=== PATIENT | female | born 1960 | race Caucasian/White ===

== ENCOUNTER 2019-07-04 07:31 | Outpatient (CLI) | payer BC, OTHER, SELFPAY ==
--- NOTE | ~2019-07-04 | MM_ITS ---
EXAMINATION: MM screening zeke BI w lucas HISTORY: Screening mammogram TECHNIQUE: Craniocaudal and mediolateral oblique 3-D tomosynthesis images were obtained and synthetic 2-D images were generated. CAD analysis was submitted and interpreted. COMPARISON: Comparison to multiple prior studies sequentially, with oldest reviewed study dated 06/2013. BREAST PARENCHYMAL COMPOSITION: There are scattered areas of fibroglandular density. FINDINGS: Right breast asymmetries are stable. There is no evidence of suspicious mass, calcification , or architectural distortion to suggest malignancy in either breast. There has been no suspicious in terval change. IMPRESSION: 1. No mammographic evidence of malignancy. 2. Recommend routine screening mammography in one year. BI-RADS Category 2: Benign finding(s). Reviewed, dictated and finalized at location A. DEPARTMENT MANAGER
== END 2019-07-04 07:32 | disposition home or self-care (01) ==
LOC: ANHIMG 07:38
PROVIDERS: PCP Internal Medicine; Visit Provider Obstetrics & Gynecology
DX: Z12.31 Encounter for screening mammogram for malignant neoplasm of breast (principal)
CPT/HCPCS: 77063; 77067

== ENCOUNTER → 2019-11-27 13:43 | Outpatient (CLI) | payer OTHER, SELFPAY ==
--- NOTE | ~2019-11-27 | US_ITS ---
EXAMINATION: US carotid duplex BI DATE: 11/27/2019 14:15 INDICATION: Right face and arm numbness. TECHNIQUE: Grayscale, color Doppler, and pulsed Doppler images of the cervical carotid arteries were obtained. The degree of vessel stenosis is placed in one of the following categories: normal, <50%, 5 0-69%, >=70% but less than near-occlusion, near-occlusion, or total occlusion. Note that percent sten osis relative to normal distal artery lumen diameter is indirectly measured from velocity measurement s as described by Constantine, et al. Radiology 2003; 229:340-346. COMPARISON: None. FINDINGS: RIGHT: The right common carotid artery (CCA) peak systolic velocity (PSV) is 96 cm/s. The right internal car otid artery (ICA) PSV is 85 cm/s. The right ICA end-diastolic velocity (EDV) is 29 cm/s. The right IC A/CCA PSV ratio is 1.4. Grayscale and color Doppler images yield an estimate of <50% diameter reducti on from plaque in the ICA. There is antegrade flow in the right vertebral artery. LEFT: The left CCA PSV is 113 cm/s. The left ICA PSV is 76 cm/s. The left ICA EDV is 22 cm/s. The left ICA/ CCA PSV ratio is 0.8. Grayscale and color Doppler images yield an estimate of <50% diameter reduction from plaque in the ICA. There is antegrade flow in the left vertebral artery. IMPRESSION: 1. <50% stenosis in the right internal carotid artery. 2. <50% stenosis in the left internal carotid artery. Reviewed, dictated and finalized at location A.
== END ==
PROVIDERS: PCP Internal Medicine; Visit Provider Physician Assistant
DX: G45.9 Transient cerebral ischemic attack, unspecified (principal); R20.0 Anesthesia of skin; I65.23 Occlusion and stenosis of bilateral carotid arteries
CPT/HCPCS: 93880

== ENCOUNTER → 2019-11-27 13:45 | Outpatient (CLI) | payer OTHER, SELFPAY ==
--- NOTE | ~2019-11-27 | XR_ITS ---
XR foot RT standing 2V, XR foot LT standing 2V 11/27/2019 14:49 Indication: Polyarticular joint pain. Osteoarthritis. Procedure: 2 views each foot Comparison: No prior studies for comparison. Findings: Normal anatomic alignment. Normal mineralization. No fracture or traumatic malalignment. Th ere are bilateral degenerative calcaneal enthesophytes. No erosive changes to suggest for inflammator y arthropathy. There is mild bilateral symmetric osteoarthritis of the first MTP joints. No fracture or traumatic malalignment. Lisfranc joint intact. Impression: 1: Mild osteoarthritis of the MTP joints. Reviewed, dictated and finalized at location A. Impression: 1: Mild osteoarthritis of the MTP joints. Impression: 1: Mild osteoarthritis of the MTP joints.
--- NOTE | ~2019-11-27 | XR_ITS ---
EXAMINATION: XR hand BI arthritis min 3V DATE: 11/27/2019 14:48 INDICATION: Unspecified osteoarthritis, unspecified site. TECHNIQUE: 4 views of right hand and 4 views of left hand on 7 radiographs were obtained. COMPARISON: None. FINDINGS: RIGHT HAND: Bone alignment is normal. No fracture. There is mild osteoarthritis of first carpometacar pal joint, second metacarpophalangeal joint, first interphalangeal joint, and second and fourth dista l interphalangeal joints. LEFT HAND: Bone alignment is normal. No fracture. There is mild osteoarthritis of first carpometacarp al joint, first and second metacarpophalangeal joints, first interphalangeal joint, third, fourth, an d fifth proximal interphalangeal joints, and second and third distal interphalangeal joints. IMPRESSION: 1. Mild polyarticular osteoarthritis. Reviewed, dictated and finalized at location A.
== END ==
PROVIDERS: PCP Internal Medicine; Visit Provider Internal Medicine
DX: R76.8 Other specified abnormal immunological findings in serum (principal); M19.072 Primary osteoarthritis, left ankle and foot; M19.071 Primary osteoarthritis, right ankle and foot; M19.042 Primary osteoarthritis, left hand; M19.041 Primary osteoarthritis, right hand
CPT/HCPCS: 73130; 73620

== ENCOUNTER → 2019-12-09 12:16 | Outpatient (CLI) | payer OTHER, SELFPAY ==
--- NOTE | ~2019-12-09 | MR_ITS ---
EXAMINATION: MR brain/brain stem wo con DATE: 12/09/2019 12:50 INDICATION: Transient cerebral ischemic attack, unspecified. Right-sided numbness. TECHNIQUE: Magnetic resonance imaging (MRI) of the brain and brainstem was performed without intraven ous contrast. Sequences included sagittal and axial T1-weighted FSE, axial diffusion-weighted FS EPI, axial T2*-weighted GRE, axial T2-weighted FLAIR Propeller, and axial T2-weighted Propeller. Apparent diffusion coefficient (ADC) maps were created. COMPARISON: Brain MRI 07/30/2010 FINDINGS: There is no intracranial hemorrhage, acute infarction, or abnormal intracranial mass lesion . There are scattered areas of nonspecific increased T2-weighted signal intensity in the cerebral whi te matter, which is within normal limits for the patient's age. The ventricles are normal in size. Th e paranasal sinuses are clear. The orbits are normal. The mastoid air cells are normal. IMPRESSION: 1. Normal aging brain. Reviewed, dictated and finalized at location B. IMPRESSION: 1. Normal aging brain.
== END ==
PROVIDERS: PCP Physician Assistant; Visit Provider Physician Assistant
DX: G45.9 Transient cerebral ischemic attack, unspecified (principal)
CPT/HCPCS: 70551

== ENCOUNTER 2020-04-10 08:18 | Emergency (ER) | payer OTHER, SELFPAY ==
[2020-04-10] VITALS (12 sets, daily range): BP systolic 126–149; BP diastolic 61–87; PULSE 87–109; RESP 13–38; TEMP 37.4; O2SAT 92–96
--- NOTE | ~2020-04-10 | XR_ITS ---
XR chest 1V portable DATE: 04/10/2020 09:43 INDICATION: Cough and fever TECHNIQUE: Portable AP chest on 04/10/2020 0937 hours COMPARISON: 02/22/2017 two-view chest FINDINGS: Heart size is normal. There are patchy infiltrates in the mid and lower lung zones bilaterally the right hilum appears more prominent compared to 02/22/2017, which may be due to right hilar adenopathy, mass, superimposed abhay g mass or consolidation. Continued radiographic follow-up is recommended. IMPRESSION: Patchy infiltrates in the mid and lower lung zones, suggesting bilateral pneumonia. Increased right hilar prominence since 02/22/2017; recommend continued radiographic follow-up Reviewed, dictated and finalized at location A. GER OF CASE MANAGEMENT IMPRESSION: Patchy infiltrates in the mid and lower lung zones, suggesting bila teral pneumonia. Increased right hilar prominence since 02/22/2017; [facility]
--- NOTE | 2020-04-10 09:24 | ED.FEVER ---
HPI - Fever General Chief Complaint: Fever Stated Complaint: exposed to covid, vomiting, cough Time Seen by Provider: 04/10/20 08:49 Source: RN notes reviewed History of Present Illness HPI Narrative: Patient presents emergency department from home for viral symptoms. The patient states for the past week she has been having a cough that has been nonproductive as well as phlegm production low-grade fever nausea and vomiting. Patient states that numerous family emergency been positive for COVID-19 and she was tested on Monday but does not have the results came in today because she has been feeling dehydrated and weak and states that she has been unable to keep down any food. She denies chest pain abdominal pain or any other symptoms at this time Related Data Home Medications Medication Instructions Recorded Confirmed esomeprazole magnesium 40 mg 40 mg PO DAILY 03/16/19 02/10/20 capsule,delayed release cholecalciferol (vitamin D3) 250 10,000 unit PO DAILY 03/19/19 02/10/20 mcg (10,000 unit) capsule esomeprazole magnesium 20 mg 20 mg PO DAILY 02/04/20 02/10/20 tablet,delayed release Allergies Allergy/AdvReac Type Severity Reaction Status Date / Time atenolol Allergy Intermediate Fatigued Verified 04/10/20 08:42 hydroxychloroquine Allergy Intermediate Rash Verified 04/10/20 08:42 oseltamivir Allergy Unknown Hallucinati Verified 04/10/20 08:42 ons morphine AdvReac Unknown NAUSEA/VOMI Verified 04/10/20 08:42 TING Review of Systems Review of Systems: Narrative: Gen.: See HPI Eyes: Denies eye pain or visual change ENT: Reports congestion Respiratory: Reports shortness of breath and cough CV: Denies chest pain or palpitations GI: Denies abdominal pain or diarrhea reports nausea and vomiting Musculoskeletal: Denies back pain or muscle pain Neuro: Denies numbness, tingling, reports weakness Skin: Denies rash Except as documented, all other systems reviewed and negative PMF Past Medical History Medical History (Updated 04/10/20 @ 12:43 by Douglas Cuba DO) ALTHEA positive Chronic GERD Headache Surgical History Surgical History H/O tubal ligation H/O: hysterectomy Hx of tonsillectomy Family History Family History Sibling Patient's sister is in good health Patient's brother is in good health Mother Patient's mother is , Onset Age: 62 Father Patient's father is , Onset Age: 63 Rheumatic arteritis Social History Social History Smoking packs per day: 0.5 Smoking cigarettes per day: 10.0 Years smoked: 3 Smoking pack-years: 1.50 Smoking status: Former smoker Second hand tobacco smoke exposure: No Smoking end date: 05/01/87 Alcohol intake: former Substance use: never Gender identity (if verbalized by the patient): Female Exam Narrative: Exam Narrative: APPEARANCE: No acute distress, nontoxic, resting in bed EYES: EOMI HEENT: Normocephalic, atraumatic, RESPIRATORY: No respiratory distress Clear to auscultation bilaterally with no rhonchi wheezing or rales. CARDIOVASCULAR: Regular rate and rhythm without murmurs rubs or gallops. ABDOMINAL: Soft, nontender, nondistended, no rebound or guarding MUSCULOSKELETAl: Moves all extremities. No clubbing, cyanosis or edema. NEURO: Awake and alert. Following commands, speech normal, no focal deficits SKIN:: Warm, dry. No rashes lesions or abrasions PSYCHIATRIC: Normal affect/mood, Course Course Emergency Course: Patient with walking pulse ox test in the ED with no episodes of desaturation : Discussed Dr. Pickard presentation work-up agrees with plan for discharge patient start antibiotics Discussed with patient results of workup and diagnosis. Discussed need for follow-up with primary care, proper use of medication,
[2020-04-10 09:54] LABS: Basophils Percent Auto 0.3 % (0.2-1.2); Hematocrit 41.5 % (37.0-47.0); Hemoglobin 14.6 g/dL (12.0-15.0); Immature Granulocyte Absolute 0.02 K/mm3 (0.00-0.031); Immature Granulocyte Percent A 0.3 % (0-0.5); Lymphocytes Absolute Auto 0.72 K/mm3 (0.9-3.2); Lymphocytes Percent Auto 12.1 % (18.3-44.2); Mean Corpuscular HGB Conc 35.2 g/dl (32-36); Mean Corpuscular Hemoglobin 30.7 pg (26-34); Mean Corpuscular Volume 87.4 fl (80-100); Monocytes Absolute Auto 0.3 K/mm3 (0.1-0.6); Monocytes Percent Auto 4.6 % (2.6-8.5); Neutrophils Absolute Auto 4.9 K/mm3 (1.3-6.7); Neutrophils Percent Auto 82.7 % (45.5-73.1); Platelet Count Result 227 k/mm3 (150-375); Red Blood Count 4.75 M/mm3 (4.2-5.4); Red Cell Distribution Width 12.2 % (11.5-14.5); White Blood Count 5.9 K/mm3 (4.5-10.0)
[2020-04-10] MEDS: ONDANSETRON INJ 4 MG/2 ML VIAL IV PUSH (09:54)
[2020-04-10] MEDS: SODIUM CHLORIDE 0.9% IV 1,000 ML 999 ML IV CONT (09:54)
[2020-04-10 10:05] LABS: Alanine Aminotransferase 26 U/L (4-35); Alkaline Phosphatase 104 U/L (38-126); Anion Gap 9 mmol/L (8-16); Aspartate Amino Transferase 49 U/L (14-36); Bilirubin,Total 0.8 mg/dL (0.2-1.3); Blood Urea Nitrogen 21 mg/dL (7-17); Calcium 8.8 mg/dL (8.4-10.2); Carbon Dioxide 25 mmol/L (22-30); Chloride 98 mmol/L (98-107); Estimated CRCL calculation 57 ml/min; Estimated Glomerular Filt Rate 56; Glucose 116 mg/dL (65-105); Potassium 3.9 mmol/L (3.4-5.0); Sodium 132 mmol/L (137-145)
[2020-04-10] MEDS: ALBUTEROL SULFATE (*SP) AEROSOL 1 PUFF 2 PUFF INHALATION (10:11)
[2020-04-10] MEDS: AZITHROMYCIN 250 MG TABLET 500 MG PO (13:16)
[2020-04-10] MEDS: predniSONE 20 MG TABLET 60 MG PO (13:16)
[2020-04-10 18:45] LABS: SARS-CoV-2 RNA PCR Positive
== END 2020-04-10 13:20 | disposition home or self-care (01) ==
PROVIDERS: Emergency Provider Emergency Medicine; PCP Internal Medicine
DX: J18.9 Pneumonia, unspecified organism (principal); R11.2 Nausea with vomiting, unspecified; Z20.828 Contact with and (suspected) exposure to other viral communicable diseases; Z87.891 Personal history of nicotine dependence
CPT/HCPCS: 36415; 71045; 80053; 85025; 87635; 87804; 96361; 96374; 99284; A9270; C9803; J2405; J7030; J7512; U0003

== ENCOUNTER 2020-04-11 08:01 | Inpatient (IN) | payer OTHER, SELFPAY ==
[2020-04-11] VITALS (8 sets, daily range): BP systolic 123–175; BP diastolic 63–83; PULSE 89–117; RESP 18–22; TEMP 36.2–37.3; O2SAT 94–100; BMI 36.3
--- NOTE | ~2020-04-11 | XR_ITS ---
EXAMINATION: XR chest 1V portable DATE: 04/11/2020 08:35 INDICATION: Shortness of breath. COVID. TECHNIQUE: frontal view of the chest was obtained. COMPARISON: Chest radiograph dated 04/10/2020 FINDINGS: Again seen are patchy airspace opacities in the right mid and left mid and lower lung zones which are without significant interval change accounting for differences in positioning. No pleural effusion o r pneumothorax. The cardiomediastinal silhouette is normal. IMPRESSION: 1. No significant interval change in patchy bilateral airspace opacities consistent with pneumonia. Reviewed, dictated and finalized at location A. OUND SUPERVISOR IMPRESSION: 1. No significant interval change in patchy bilateral airspace opacities consis tent with pneumonia.
--- NOTE | ~2020-04-11 | XR_ITS ---
EXAMINATION: XR chest 1V portable DATE: 04/14/2020 05:47 INDICATION: COVID-19 pneumonia. TECHNIQUE: A single frontal view of the chest was obtained. COMPARISON: Chest view 04/11/2020, CT abdomen and pelvis 05/25/2019 FINDINGS: There are scattered airspace opacities throughout the lungs bilaterally. No pleural effusio n or pneumothorax. The heart size is normal. IMPRESSION: 1. Worsened diffuse lung disease, consistent with pneumonia. Reviewed, dictated and finalized at location A. ERN STAMPER
[2020-04-11 08:32] LABS: Basophils Percent Auto 0.1 % (0.2-1.2); Hematocrit 41.7 % (37.0-47.0); Hemoglobin 14.3 g/dL (12.0-15.0); Immature Granulocyte Absolute 0.03 K/mm3 (0.00-0.031); Immature Granulocyte Percent A 0.4 % (0-0.5); Lymphocytes Absolute Auto 1.02 K/mm3 (0.9-3.2); Lymphocytes Percent Auto 12.9 % (18.3-44.2); Mean Corpuscular HGB Conc 34.3 g/dl (32-36); Mean Corpuscular Hemoglobin 30.7 pg (26-34); Mean Corpuscular Volume 89.5 fl (80-100); Mean Platelet Volume 10.4 fl (7.4-10.4); Monocytes Absolute Auto 0.4 K/mm3 (0.1-0.6); Monocytes Percent Auto 4.8 % (2.6-8.5); Neutrophils Absolute Auto 6.5 K/mm3 (1.3-6.7); Neutrophils Percent Auto 81.8 % (45.5-73.1); Platelet Count Result 241 k/mm3 (150-375); Red Blood Count 4.66 M/mm3 (4.2-5.4); Red Cell Distribution Width 12.4 % (11.5-14.5); White Blood Count 7.9 K/mm3 (4.5-10.0)
[2020-04-11 08:47] LABS: Alveolar/Arterial O2 Gradient 53.1 mmHg; Base Excess ABG -2.4 mEq/l (+/-2.0); Fractional Inspired Oxygen 21 %; HCO3 ABG 20.6 mEq/l (22.0-26.0); Oxygen Content ABG 17.9 %vol (16.0-22.0); Oxygen Saturation ABG 92.3 % (95.0-100.0); Oxyhemoglobin 90.8 % THb (90.0-100.0); PCO2 ABG 30.6 mmHg (35.0-45.0); PO2 FiO2 Ratio Arterial Blood 2.86 %; pH ABG 7.445 (7.350-7.450)
[2020-04-11 08:47] LABS: Anion Gap 10 mmol/L (8-16); Blood Urea Nitrogen 20 mg/dL (7-17); Carbon Dioxide 26 mmol/L (22-30); Chloride 101 mmol/L (98-107); Estimated CRCL calculation 64 ml/min; Estimated Glomerular Filt Rate > 60; Glucose 129 mg/dL (65-105); Potassium 3.7 mmol/L (3.4-5.0); Sodium 137 mmol/L (137-145)
[2020-04-11 08:48] LABS: Device ROOM AIR; Site Drawn LEFT BRACHIAL
--- NOTE | 2020-04-11 09:59 | PC.NURSE ---
After some exertion, the patients O2 dropped to 89 and mostly stayed at 90. Heart rate reached 136
--- NOTE | 2020-04-11 10:10 | ED.SOB ---
HPI - SOB/Dyspnea General Chief Complaint: Shortness of Breath/Dyspnea Stated Complaint: Covid +, SOB Time Seen by Provider: 04/11/20 08:06 Source: patient Mode of arrival: ambulatory Limitations: no limitations History of Present Illness HPI Narrative: 59-year-old female Here yesterday for nausea vomiting cough Started Augmentin and prednisone and was prescribed albuterol but it really is not using that Feels worse today with more shortness of breath Meanwhile yesterday's Covid swab came back positive No fever no dizziness Onset (ago): day(s) Related Data Home Medications Medication Instructions Recorded Confirmed esomeprazole magnesium 40 mg 40 mg PO DAILY 03/16/19 04/11/20 capsule,delayed release cholecalciferol (vitamin D3) 250 10,000 unit PO DAILY 03/19/19 04/11/20 mcg (10,000 unit) capsule esomeprazole magnesium 20 mg 20 mg PO DAILY 02/04/20 04/11/20 tablet,delayed release Allergies Allergy/AdvReac Type Severity Reaction Status Date / Time atenolol Allergy Intermediate Fatigued Verified 04/11/20 08:16 hydroxychloroquine Allergy Intermediate Rash Verified 04/11/20 08:16 oseltamivir Allergy Unknown Hallucinati Verified 04/11/20 08:16 ons morphine AdvReac Unknown NAUSEA/VOMI Verified 04/11/20 08:16 TING Review of Systems Review of Systems: All systems reviewed & are unremarkable except as noted in HPI and below Constitutional: Constitutional: Reports chills, Reports fatigue, Denies fever(s), Denies headache(s) and Reports weakness Eyes: Eyes: Reports no additional eye complaints and Denies change in vision ENT: Denies headache(s), Denies epistaxis, Denies nasal congestion and Denies sore throat Cardiovascular: Cardiovascular: Denies chest pain, Denies leg edema, Denies palpitations and Denies dyspnea Respiratory: Respiratory: Reports cough, Reports dyspnea and Denies wheezing Gastrointestinal: Gastrointestinal: Denies abdominal pain, Denies diarrhea, Reports nausea and Reports vomiting Genitourinary: Genitourinary: Denies hematuria, Denies urinary frequency and Denies dysuria Musculoskeletal: Musculoskeletal: Reports myalgias, Denies deformity, Denies arthralgias, Denies joint swelling, Denies muscle weakness and Denies numbness Integumentary/Breasts: Skin/Breast: Denies rash and Denies wounds Neurologic: Denies headache(s), Denies focal weakness, Denies numbness and Denies weakness Psychiatric: Psychiatric: Reports no additional psychiatric complaints Endocrine: Endocrine: Denies fatigue and Denies palpitations Hematologic/Lymphatic: Hematologic/Lymphatic: Denies easy bleeding and Denies easy bruising Allergic/Immunologic: Allergic/Immunologic: Denies wheezing PMFSH Past Medical History Medical History (Updated 04/11/20 @ 10:57 by Arsen Moreira MD) ALTHEA positive Chronic GERD Headache Surgical History Surgical History H/O tubal ligation H/O: hysterectomy Hx of tonsillectomy Family History Family History Sibling Patient's sister is in good health Patient's brother is in good health Mother Patient's mother is , Onset Age: 62 Father Patient's father is , Onset Age: 63 Rheumatic arteritis Social History Social History Smoking packs per day: 0.5 Smoking cigarettes per day: 10.0 Years smoked: 3 Smoking pack-years: 1.50 Smoking status: Former smoker Second hand tobacco smoke exposure: No Smoking end date: 05/01/87 Alcohol intake: former Substance use: never Gender identity (if verbalized by the patient): Female Exam Const: General: alert Nutritional Appearance: well nourished Orientation/consciousness: patient oriented x3 Limitations: no limitations HENMT: Head: normocephalic and atraumatic Ears: external ears normal
[2020-04-11] MEDS: DOXYCYCLINE HYCLATE 100 MG TABLET 200 MG PO (10:26)
[2020-04-11] MEDS: ENOXAPARIN 100 MG/ML SYRINGE SUB-Q (10:27)
[2020-04-11] MEDS: ALBUTEROL SULFATE (*SP) AEROSOL 1 PUFF 4 PUFF INHALATION (10:29)
--- NOTE | 2020-04-11 12:44 | PC.NURSE ---
This patient, Dulce Zabala, was admitted to 3 [facility] Surg Room 327-01. Patient/family oriented to hospital policies and general routines including ID bracelet, bed and alarms, visiting hours, pain management, procedures, bathroom and other care routines, personal items, smoking policy, room service/diet, and visiting hours. Information on how to activate the Rapid Response Team has been discussed. Patient/Family are encouraged to report perceived risks to care and to ask questions if they do not understand what they are told or what they should do.
--- NOTE | 2020-04-11 12:49 | ADMGEN ---
This patient, Dulce Zabala, was admitted to 3 [facility] Surg Room 327-01. Patient/family oriented to hospital policies and general routines including ID bracelet, bed and alarms, visiting hours, pain management, procedures, bathroom and other care routines, personal items, smoking policy, room service/diet, and visiting hours. Information on how to activate the Rapid Response Team has been discussed. Patient/Family are encouraged to report perceived risks to care and to ask questions if they do not understand what they are told or what they should do.
--- NOTE | 2020-04-11 13:00 | PM.IMHP ---
H&P: HPI History of Present Illness Date/Time: 04/11/20 13:00 Chief complaint: Shortness of breath. Narrative: Dulce Zabala is 59-year-old female with ALTHEA positive inflammatory arthritis for which she is on hydroxychloroquine who presented to the emergency department earlier today from home for evaluation of shortness of breath. She was actually seen emergency department yesterday with respiratory symptoms including cough, low-grade fever, nausea, vomiting, and diarrhea and at that time she was concerned for COVID-19 as she was exposed to such about a week ago. She was found to have pneumonia on chest x-ray and was discharged home on Augmentin and prednisone and she was also given a prescription for a rescue inhaler. Unfortunately she has had increasing shortness of breath which led her to return back to the emergency department. Reportedly she became hypoxic with an SpO2 in the high 80s with ambulation, prompting her admission. At the time my evaluation she is resting comfortably but continues to have a nagging cough and feelings of shortness of breath, without activity. No headache, chest pain, pleuritic pain, current nausea or vomiting, or lower extremity edema. Review of Systems Review of Systems: Narrative: Twelve systems were reviewed with pertinent positives and negatives as per HPI. No headache or neck ache. Her appetite is somewhat improved. No syncope or near syncope. Diarrhea has resolved. No dysuria. She has not taken her hydroxychloroquine for several days and is not having any issues with joint pain. Except as documented, all other systems were reviewed and are negative. [facility] Past Medical History Medical History (Updated 04/12/20 @ 00:51 by Nga Saenz PA-C) ALTHEA positive Chronic GERD Fatty liver Hyperlipidemia Hypertension Inflammatory arthritis Rectal polyp Shingles (~01/2020) Vitamin D deficiency Surgical History Surgical History (Updated 04/12/20 @ 00:48 by Nga Saenz PA-C) History of tonsillectomy History of total abdominal hysterectomy and bilateral salpingo-oophorectomy History of tubal ligation Family History Family History Sibling Patient's sister is in good health Patient's brother is in good health Mother Patient's mother is , Onset Age: 62 Father Patient's father is , Onset Age: 63 Rheumatic arteritis Social History Social History (Updated 04/12/20 @ 00:49 by Nga Saenz PA-C) Social History: Resides in [place] with her . Remote smoking history, quit in 1987. No alcohol or illicit substance abuse. She designates her as her surrogate decision maker and wishes to be a full code. Smoking packs per day: 0.5 Smoking cigarettes per day: 10.0 Years smoked: 3 Smoking pack-years: 1.50 Smoking status: Never smoker Second hand tobacco smoke exposure: No Smoking end date: 05/01/87 Alcohol intake: never Substance use: never Gender identity (if verbalized by the patient): Female Spiritual care concerns: No Meds Home Medications and Allergies Home Medications Medication Instructions Recorded Confirmed Type cholecalciferol (vitamin D3) 250 10,000 unit PO DAILY 03/19/19 04/11/20 History mcg (10,000 unit) capsule hydroxychloroquine 200 mg tablet 200 mg PO BID #180 tablet 01/14/20 04/11/20 Rx esomeprazole magnesium 20 mg 20 mg PO DAILY 02/04/20 04/11/20 History tablet,delayed release nebivolol 10 mg tablet 10 mg PO DAILY #90 tablet 03/24/20 04/11/20 Rx albuterol sulfate 2 puff INHALATION QID PRN #6.7 gm 04/10/20 04/11/20 Rx amoxicillin-pot clavulanate 1 tablet PO Q12H #20 tablet 04/10/20 04/11/20 Rx [Augmentin] prednisone 20 mg PO BID #8 tablet 04/10/20 04/11/20 Rx Allergies Allergy/AdvReac Type Severity Reaction Status Date / Time atenolol Allergy Intermediate Fatigued Verified 04/11/20 12:59 oseltamivir Al
[2020-04-11] MEDS: ENOXAPARIN 100 MG/ML SYRINGE 93 MG SUB-Q (20:07)
[2020-04-12] VITALS (13 sets, daily range): BP systolic 107–170; BP diastolic 55–74; PULSE 75–118; RESP 18–22; TEMP 36.7–39.4; O2SAT 91–94
[2020-04-12] MEDS: ACETAMINOPHEN 325 MG TABLET 650 MG PO ×2 (04:18→13:54)
[2020-04-12 07:16] LABS: Basophils Percent Auto 0.1 % (0.2-1.2); Hematocrit 34.5 % (37.0-47.0); Hemoglobin 11.9 g/dL (12.0-15.0); Immature Granulocyte Absolute 0.04 K/mm3 (0.00-0.031); Immature Granulocyte Percent A 0.5 % (0-0.5); Lymphocytes Absolute Auto 0.74 K/mm3 (0.9-3.2); Lymphocytes Percent Auto 9.2 % (18.3-44.2); Mean Corpuscular HGB Conc 34.5 g/dl (32-36); Mean Corpuscular Hemoglobin 29.7 pg (26-34); Mean Platelet Volume 10.7 fl (7.4-10.4); Monocytes Absolute Auto 0.3 K/mm3 (0.1-0.6); Monocytes Percent Auto 3.2 % (2.6-8.5); Platelet Count Result 195 k/mm3 (150-375); Red Blood Count 4.01 M/mm3 (4.2-5.4); Red Cell Distribution Width 12.1 % (11.5-14.5)
[2020-04-12 07:42] LABS: Potassium 3.5 mmol/L (3.4-5.0)
--- NOTE | 2020-04-12 07:44 | PM.IMPN ---
Progress Note: A&P Assessment and Plan (1) Pneumonia due to 2019-nCoV: Code(s): U07.1 - COVID-19; J12.89 - Other viral pneumonia Status: Acute Assessment and Plan: Dexamethasone begun 04/11 Remdesivir begun 04/12 Monitor clinical progress and inflammatory markers (2) Hypoxia: Code(s): R09.02 - Hypoxemia Status: Acute Assessment and Plan: Due to COVID-19 pneumonia Currently requiring 2L (3) Inflammatory arthritis: Code(s): M19.90 - Unspecified osteoarthritis, unspecified site Status: Acute Assessment and Plan: Monitor for s/sx while on steroids (4) Hypertension: Code(s): I10 - Essential (primary) hypertension Status: Acute Assessment and Plan: Continue nebivolol (5) Chronic GERD: Code(s): K21.9 - Gastro-esophageal reflux disease without esophagitis Status: Acute Assessment and Plan: Continue pantoprazole Subjective Date/time seen: 04/12/20 07:44 Interval history: 59 y/o f admitted 04/11 with cough, dyspnea, fever. Oxygen desaturation to the mid-80s with ambulation. 04/12 still has headache, cough, Shortness of breath with exertion,burning and chest with breathing, body aches, loose stools. Can still taste and smell. Review of Systems Review of Systems: All systems reviewed & are unremarkable except as noted in HPI and below Exam Narrative: Exam Narrative: General: Lying in hospital bed in no acute distress. HEENT: PERRLA, EOMI. Sclerae anicteric. Oral mucosa moist. Oropharynx poorly visualized. Neck: Supple. No JVD. Respiratory: normal effort. Intermittent cough.Scattered crackles at the bases. Cardiovascular: Regular rate and rhythm with S1-S2 Normal. No murmur. Gastrointestinal: Abdomen is soft, nontender, and nondistended with positive bowel sounds. Skin: Warm and dry. Extremities: No cyanosis, clubbing, or edema. Neurological: Cranial nerves 2-12 are grossly intact. Psychiatric: Alert and oriented to person place and time and situation. Pleasant and cooperative. Objective Data Vital Signs Vital Signs: Vital Signs - 24 hr 04/11/20 08:14 04/11/20 10:15 04/11/20 10:17 Temperature 97.1 F L Pulse Rate 89 92 Respiratory Rate 22 H 20 Blood Pressure 144/76 H 175/74 H Pulse Oximetry 94 98 98 04/11/20 11:01 04/11/20 12:30 04/11/20 12:31 Temperature 99.1 F Pulse Rate 114 H 117 H 108 H Respiratory Rate 20 20 20 Blood Pressure 161/83 H 136/68 156/71 H Pulse Oximetry 98 95 100 04/11/20 16:00 04/11/20 20:00 04/12/20 00:00 Temperature 98.8 F 98.9 F 99.2 F Pulse Rate 106 H 91 90 Respiratory Rate 18 22 H 20 Blood Pressure 138/63 123/63 130/59 L Pulse Oximetry 94 94 94 04/12/20 04:00 04/12/20 04:18 04/12/20 05:18 Temperature 103.0 F H 103.0 F H 99.8 F H Pulse Rate 118 H Respiratory Rate 22 H Blood Pressure 170/74 H Pulse Oximetry 93 Intake/Output Intake/Output: Intake & Output 04/09/20 04/10/20 04/11/20 04/12/20 23:59 23:59 23:59 23:59 Intake Total 470 900 Output Total 600 Balance 470 300 Meds/Results Medications: Active Medications Generic Name Dose Route Start Last Admin Trade Name Freq PRN Reason Stop Dose Admin Acetaminophen 650 mg 04/11/20 10:58 04/12/20 04:18 Acetaminophen 325 Mg Tablet PO 650 mg Q4H PRN Administration Mild Pain (1-3) or Fever Albuterol 2 puff 04/11/20 23:40 Albuterol Sulfate (*Sp) Aerosol 1 Puff INHALATION QID PRN shortness of breath or wheezing Dexamethasone 6 mg 04/12/20 08:00 Dexamethasone 2 Mg Tablet PO 04/21/20 08:01 DAILY@0800 EVANGELISTA Enoxaparin Sodium 40 mg 04/12/20 09:00 Enoxaparin 40 Mg/0.4 Ml Syringe SUB-Q Q12HR EVANGELISTA Nebivolol 10 mg 04/12/20 09:00 Nebivolol Hcl 5 Mg Tablet PO DAILY EVANGELISTA Ondansetron HCl 4 mg 04/11/20 10:58 Ondansetron Inj 4 Mg/2 Ml Vial IV PUSH Q4H PRN Nausea Pantoprazole Sodium
[2020-04-12 07:57] LABS: Alanine Aminotransferase 38 U/L (4-35); Albumin Level 3.3 g/dL (3.5-5.1); Alkaline Phosphatase 78 U/L (38-126); Anion Gap 9 mmol/L (8-16); Aspartate Amino Transferase 61 U/L (14-36); Bilirubin,Total 0.8 mg/dL (0.2-1.3); Blood Urea Nitrogen 24 mg/dL (7-17); Calcium 8.5 mg/dL (8.4-10.2); Carbon Dioxide 23 mmol/L (22-30); Chloride 101 mmol/L (98-107); Estimated CRCL calculation 59 ml/min; Estimated Glomerular Filt Rate 56; Glucose 117 mg/dL (65-105); Lactate Dehydrogenase 737 U/L (313-618); Sodium 133 mmol/L (137-145)
[2020-04-12 09:43] LABS: Alanine Aminotransferase 38 U/L (4-35)
[2020-04-12] MEDS: DEXAMETHASONE 2 MG TABLET 6 MG PO (10:19)
[2020-04-12] MEDS: REMDESIVIR 200 MG/NS 250 ML 200 MG/250 ML BAG 250 MG IVPB (10:19)
[2020-04-12] MEDS: CHOLECALCIFEROL 1,000 UNITS TABLET 10000 UNITS PO (10:20)
[2020-04-12] MEDS: PANTOPRAZOLE SOD SESQUIHYDRATE 20 MG TAB PO (10:20)
[2020-04-12] MEDS: ENOXAPARIN 40 MG/0.4 ML SYRINGE SUB-Q ×2 (10:21→21:46)
[2020-04-12] MEDS: NEBIVOLOL HCL 5 MG TABLET 10 MG PO (10:22)
[2020-04-13] VITALS (9 sets, daily range): BP systolic 109–129; BP diastolic 56–61; PULSE 73–83; RESP 16–20; TEMP 36.4–37.2; O2SAT 86–94
[2020-04-13 06:38] LABS: Hematocrit 35.7 % (37.0-47.0); Hemoglobin 12.2 g/dL (12.0-15.0); Mean Corpuscular HGB Conc 34.2 g/dl (32-36); Mean Corpuscular Hemoglobin 30.2 pg (26-34); Mean Corpuscular Volume 88.4 fl (80-100); Mean Platelet Volume 10.8 fl (7.4-10.4); Platelet Count Result 198 k/mm3 (150-375); Red Blood Count 4.04 M/mm3 (4.2-5.4); Red Cell Distribution Width 12.5 % (11.5-14.5); White Blood Count 6.8 K/mm3 (4.5-10.0)
[2020-04-13 06:52] LABS: D Dimer 0.59 ug/mL (<0.48)
[2020-04-13 06:54] LABS: Alanine Aminotransferase 70 U/L (4-35); Albumin Level 3.3 g/dL (3.5-5.1); Alkaline Phosphatase 90 U/L (38-126); Anion Gap 3 mmol/L (8-16); Aspartate Amino Transferase 87 U/L (14-36); Bilirubin,Total 0.7 mg/dL (0.2-1.3); Blood Urea Nitrogen 24 mg/dL (7-17); Calcium 8.6 mg/dL (8.4-10.2); Carbon Dioxide 25 mmol/L (22-30); Chloride 102 mmol/L (98-107); Estimated CRCL calculation 65 ml/min; Estimated Glomerular Filt Rate > 60; Glucose 111 mg/dL (65-105); Lactate Dehydrogenase 788 U/L (313-618); Potassium 3.9 mmol/L (3.4-5.0); Sodium 130 mmol/L (137-145)
[2020-04-13 07:04] LABS: CRP 17.7 mg/dL (<1.0)
[2020-04-13] MEDS: DEXAMETHASONE 2 MG TABLET 6 MG PO (08:56)
[2020-04-13] MEDS: ENOXAPARIN 40 MG/0.4 ML SYRINGE SUB-Q ×2 (08:57→20:28)
[2020-04-13] MEDS: CHOLECALCIFEROL 1,000 UNITS TABLET 10000 UNITS PO (08:57)
[2020-04-13] MEDS: NEBIVOLOL HCL 5 MG TABLET 10 MG PO (08:57)
[2020-04-13] MEDS: PANTOPRAZOLE SOD SESQUIHYDRATE 20 MG TAB PO (08:57)
[2020-04-13] MEDS: ALBUTEROL SULFATE (*SP) AEROSOL 1 PUFF 2 PUFF INHALATION (09:07)
[2020-04-13] MEDS: REMDESIVIR 100 MG/NS 250 ML 100 MG/250 ML BAG 250 MG IVPB (10:16)
--- NOTE | 2020-04-13 16:50 | PC.NURSE ---
patient states she was prone for 1 hour this afternoon and verbalizes understanding that MD would like her to do this again later today.
--- NOTE | 2020-04-13 18:25 | PM.IMPN ---
Progress Note: A&P Assessment and Plan (1) Pneumonia due to 2019-nCoV: Code(s): U07.1 - COVID-19; J12.89 - Other viral pneumonia Status: Acute Assessment and Plan: Inflammatory markers worse today. Still remains on 2L. Fever resolving. Dexamethasone begun 04/11. Remdesivir begun 04/12. Monitor clinical progress and inflammatory markers Repeat CXR in the morning She was encouraged to lie prone as often as possible Add incentive spirometry (2) Hypoxia: Code(s): R09.02 - Hypoxemia Status: Acute Assessment and Plan: Due to COVID-19 pneumonia. Stable on 2L. Continue to attempt to wean O2 to keep sats >92% (3) Inflammatory arthritis: Code(s): M19.90 - Unspecified osteoarthritis, unspecified site Status: Acute Assessment and Plan: Patient with ALTHEA+ inflammatory arthritis. She is on HCQ and Prednisone at home. HCQ on hold. Monitor for s/sx while on steroids (4) Hypertension: Code(s): I10 - Essential (primary) hypertension Status: Acute Assessment and Plan: Patient's blood pressure was reviewed on 04/13. Blood pressure remains well controlled. Continue nebivolol Will continue current medications. (5) Chronic GERD: Code(s): K21.9 - Gastro-esophageal reflux disease without esophagitis Status: Acute Assessment and Plan: Stable. Continue pantoprazole (6) DVT prophylaxis: Code(s): Z29.9 - Encounter for prophylactic measures, unspecified Status: Acute Assessment and Plan: Lovenox 40mg Q12h Subjective Date/time seen: 04/13/20 18:25 Interval history: Date of service 04/13 59yo female with ALTHEA positive inflammatory arthritis admitted 04/11 with cough, dyspnea, fever. Oxygen desaturation to the mid-80s with ambulation. Tested positive for COVID on 04/10 COugh persistent productive of clear sputum. No CP but thigh to take deep breaths. +SOB. Decreased appetite. No n/v. Can still taste and smell. Exam Narrative: Exam Narrative: Tm 103 98.6 109/57 76 16 90% 2L Gen - NARD Chest - inspiratory crackles mid and lower lung leal. CV - RRR S1/S2 Abd - Soft, NT/ND, Positive BS Ext - No pedal edema, 2+ DP bilaterally. Neuro - Alert and oriented. Nonfocal exam. Psych - Nml mood and affect Skin - Warm and dry Objective Data Vital Signs Vital Signs: Vital Signs - 24 hr 04/12/20 20:00 04/12/20 20:30 04/13/20 00:00 Temperature 98.4 F 99 F Pulse Rate 75 75 83 Respiratory Rate 20 20 16 Blood Pressure 122/58 L 129/60 Pulse Oximetry 91 91 94 04/13/20 05:00 04/13/20 08:00 04/13/20 08:57 Temperature 97.6 F 98.9 F Pulse Rate 77 73 77 Respiratory Rate 18 16 Blood Pressure 119/60 120/61 Pulse Oximetry 90 90 04/13/20 12:00 04/13/20 16:34 04/13/20 16:35 Temperature 98.6 F Pulse Rate 76 Respiratory Rate 16 Blood Pressure 109/57 L Pulse Oximetry 90 86 L 90 Intake/Output Intake/Output: Intake & Output 04/10/20 04/11/20 04/12/20 04/13/20 23:59 23:59 23:59 23:59 Intake Total 470 2050 930 Output Total 600 300 Balance 470 1450 630 Meds/Results Medications: Active Medications Generic Name Dose Route Start Last Admin Trade Name Freq PRN Reason Stop Dose Admin Acetaminophen 650 mg 04/11/20 10:58 04/12/20 13:54 Acetaminophen 325 Mg Tablet PO 650 mg Q4H PRN Administration Mild Pain (1-3) or Fever Albuterol 2 puff 04/11/20 23:40 04/13/20 09:07 Albuterol Sulfate (*Sp) Aerosol 1 Puff INHALATION 2 puff QID PRN Administration shortness of breath or wheezing Dexamethasone 6 mg 04/12/20 08:00 04/13/20 08:56 Dexamethasone 2 Mg Tablet PO 04/21/20 08:01 6 mg DAILY@0800 EVANGELISTA Administration Enoxaparin Sodium 40 mg 04/12/20 09:00 04/13/20 08:57 Enoxaparin 40 Mg/0.4 Ml Syringe SUB-Q 40 mg Q12HR EVANGELISTA Administration Remdesivir 100 mg in 250 mls @ 250 mls/hr 04/13/20 10:00
[2020-04-14] VITALS (10 sets, daily range): BP systolic 114–141; BP diastolic 59–69; PULSE 64–73; RESP 14–20; TEMP 36–36.6; O2SAT 83–93
[2020-04-14 07:06] LABS: Alanine Aminotransferase 64 U/L (4-35); Albumin Level 3.1 g/dL (3.5-5.1); Alkaline Phosphatase 87 U/L (38-126); Anion Gap 6 mmol/L (8-16); Aspartate Amino Transferase 63 U/L (14-36); Bilirubin,Total 0.7 mg/dL (0.2-1.3); Blood Urea Nitrogen 29 mg/dL (7-17); CRP 6.7 mg/dL (<1.0); Calcium 8.4 mg/dL (8.4-10.2); Carbon Dioxide 29 mmol/L (22-30); Chloride 102 mmol/L (98-107); Estimated CRCL calculation 72 ml/min; Estimated Glomerular Filt Rate > 60; Glucose 141 mg/dL (65-105); Lactate Dehydrogenase 772 U/L (313-618); Sodium 137 mmol/L (137-145)
[2020-04-14] MEDS: CHOLECALCIFEROL 1,000 UNITS TABLET 10000 UNITS PO (08:14)
[2020-04-14] MEDS: ENOXAPARIN 40 MG/0.4 ML SYRINGE SUB-Q ×2 (08:14→21:14)
[2020-04-14] MEDS: DEXAMETHASONE 2 MG TABLET 6 MG PO (08:14)
[2020-04-14] MEDS: NEBIVOLOL HCL 5 MG TABLET 10 MG PO (08:15)
[2020-04-14] MEDS: PANTOPRAZOLE SOD SESQUIHYDRATE 20 MG TAB PO (08:15)
[2020-04-14] MEDS: REMDESIVIR 100 MG/NS 250 ML 100 MG/250 ML BAG 250 MG IVPB (12:04)
--- NOTE | 2020-04-14 15:01 | PM.IMPN ---
Progress Note: A&P Assessment and Plan (1) Pneumonia due to 2019-nCoV: Code(s): U07.1 - COVID-19; J12.89 - Other viral pneumonia Status: Acute Assessment and Plan: Inflammatory markers, recheck am Now on 3L. Fever resolving. Dexamethasone begun 04/11. Remdesivir begun 04/12. Monitor clinical progress and inflammatory marker She was encouraged to lie prone as often as possible Add incentive spirometry CXR today slightly worse (2) Hypoxia: Code(s): R09.02 - Hypoxemia Status: Acute Assessment and Plan: Due to COVID-19 pneumonia. Stable on 3L. now Continue to attempt to wean O2 to keep sats >92% (3) Inflammatory arthritis: Code(s): M19.90 - Unspecified osteoarthritis, unspecified site Status: Acute Assessment and Plan: Patient with ALTHEA+ inflammatory arthritis. She is on HCQ and Prednisone at home. HCQ on hold. Monitor for s/sx while on steroids (4) Hypertension: Code(s): I10 - Essential (primary) hypertension Status: Acute Assessment and Plan: Patient's blood pressure was reviewed on 04/14. Blood pressure remains well controlled. Continue nebivolol Will continue current medications. (5) Chronic GERD: Code(s): K21.9 - Gastro-esophageal reflux disease without esophagitis Status: Acute Assessment and Plan: Stable. Continue pantoprazole (6) DVT prophylaxis: Code(s): Z29.9 - Encounter for prophylactic measures, unspecified Status: Acute Assessment and Plan: Lovenox 40mg Q12h Subjective Date/time seen: 04/14/20 15:01 Interval history: Date of service 04/14 59yo female with ALTHEA positive inflammatory arthritis admitted 04/11 with cough, dyspnea, fever. Oxygen desaturation to the mid-80s with ambulation. Tested positive for COVID on 04/10 COugh persistent productive of clear sputum. No CP but difficult to take deep breaths. +SOB. Decreased appetite. No n/v. Can still taste and smell. Exam Narrative: Exam Narrative: AF last 36Hrs 116/62 72 16 92% 3L Gen - NARD Chest - inspiratory crackles mid and lower lung leal bilaterally post CV - RRR S1/S2 Abd - Soft, NT/ND, Positive BS Ext - No pedal edema, 2+ DP bilaterally. Neuro - Alert and oriented. Nonfocal exam. Psych - Nml mood and affect Skin - Warm and dry Objective Data Vital Signs Vital Signs: Vital Signs - 24 hr 04/13/20 16:00 04/13/20 16:34 04/13/20 16:35 Temperature 36.8 C Pulse Rate 75 Respiratory Rate 16 Blood Pressure 124/57 L Pulse Oximetry 91 86 L 90 04/13/20 20:00 04/14/20 00:00 04/14/20 04:00 Temperature 36.8 C 36.6 C 36.5 C Pulse Rate 73 71 72 Respiratory Rate 20 20 20 Blood Pressure 117/56 L 132/65 115/60 Pulse Oximetry 90 90 90 04/14/20 08:00 04/14/20 08:15 04/14/20 10:00 Temperature 36.1 C L Pulse Rate 73 72 Respiratory Rate 14 Blood Pressure 117/69 Pulse Oximetry 83 L 90 04/14/20 12:00 Temperature 36.0 C L Pulse Rate 72 Respiratory Rate 16 Blood Pressure 116/62 Pulse Oximetry 92 Intake/Output Intake/Output: Intake & Output 04/11/20 04/12/20 04/13/20 04/14/20 23:59 23:59 23:59 23:59 Intake Total 470 2050 1480 730 Output Total 600 500 800 Balance 470 1450 980 -70 Meds/Results Medications: Active Medications Generic Name Dose Route Start Last Admin Trade Name Freq PRN Reason Stop Dose Admin Acetaminophen 650 mg 04/11/20 10:58 04/12/20 13:54 Acetaminophen 325 Mg Tablet PO 650 mg Q4H PRN Administration Mild Pain (1-3) or Fever Albuterol 2 puff 04/11/20 23:40 04/13/20 09:07 Albuterol Sulfate (*Sp) Aerosol 1 Puff INHALATION 2 puff QID PRN Administration shortness of breath or wheezing Benzonatate 200 mg 04/14/20 17:00 Benzonatate 100 Mg Capsule PO TID [facility] Dexamethasone 6 mg 04/12/20 08:00 04/14/20 08:14 Dexamethasone 2 Mg Tablet PO 04/21/20 08:01 6 mg
[2020-04-14 16:17] LABS: Creatinine Urine 131.7 mg/dL
[2020-04-14 16:18] LABS: Sodium Urine Random 21 meq/L
[2020-04-14] MEDS: BENZONATATE 100 MG CAPSULE 200 MG PO (16:28)
[2020-04-15] VITALS (20 sets, daily range): BP systolic 116–139; BP diastolic 54–68; PULSE 64–89; RESP 12–22; TEMP 36.2–36.9; O2SAT 75–96
[2020-04-15] MEDS: BENZONATATE 100 MG CAPSULE 200 MG PO ×4 (00:30→18:50)
[2020-04-15] MEDS: ALBUTEROL SULFATE (*SP) AEROSOL 1 PUFF 2 PUFF INHALATION (06:22)
[2020-04-15 06:26] LABS: Hematocrit 35.6 % (37.0-47.0); Immature Granulocyte Absolute 0.04 K/mm3 (0.00-0.031); Immature Granulocyte Percent A 0.7 % (0-0.5); Lymphocytes Absolute Auto 0.71 K/mm3 (0.9-3.2); Lymphocytes Percent Auto 11.9 % (18.3-44.2); Mean Corpuscular HGB Conc 33.7 g/dl (32-36); Mean Corpuscular Hemoglobin 30.2 pg (26-34); Mean Corpuscular Volume 89.4 fl (80-100); Monocytes Absolute Auto 0.4 K/mm3 (0.1-0.6); Monocytes Percent Auto 6.7 % (2.6-8.5); Neutrophils Absolute Auto 4.8 K/mm3 (1.3-6.7); Neutrophils Percent Auto 80.7 % (45.5-73.1); Platelet Count Result 279 k/mm3 (150-375); Red Blood Count 3.98 M/mm3 (4.2-5.4); Red Cell Distribution Width 12.3 % (11.5-14.5)
[2020-04-15 06:42] LABS: D Dimer 0.45 ug/mL (<0.48)
[2020-04-15 06:44] LABS: Alanine Aminotransferase 49 U/L (4-35); Albumin Level 2.9 g/dL (3.5-5.1); Alkaline Phosphatase 78 U/L (38-126); Anion Gap 4 mmol/L (8-16); Aspartate Amino Transferase 43 U/L (14-36); Blood Urea Nitrogen 23 mg/dL (7-17); CRP 3.6 mg/dL (<1.0); Calcium 8.4 mg/dL (8.4-10.2); Carbon Dioxide 30 mmol/L (22-30); Chloride 104 mmol/L (98-107); Estimated CRCL calculation 72 ml/min; Estimated Glomerular Filt Rate > 60; Glucose 123 mg/dL (65-105); Lactate Dehydrogenase 701 U/L (313-618); Potassium 3.9 mmol/L (3.4-5.0); Sodium 138 mmol/L (137-145)
[2020-04-15] MEDS: PANTOPRAZOLE SOD SESQUIHYDRATE 20 MG TAB PO (08:43)
[2020-04-15] MEDS: NEBIVOLOL HCL 5 MG TABLET 10 MG PO (08:43)
[2020-04-15] MEDS: DEXAMETHASONE 2 MG TABLET 6 MG PO (08:43)
[2020-04-15] MEDS: CHOLECALCIFEROL 1,000 UNITS TABLET 10000 UNITS PO (08:44)
[2020-04-15] MEDS: ENOXAPARIN 40 MG/0.4 ML SYRINGE SUB-Q ×2 (08:44→21:21)
[2020-04-15] MEDS: REMDESIVIR 100 MG/NS 250 ML 100 MG/250 ML BAG 250 MG IVPB (09:55)
[2020-04-15] MEDS: SODIUM CHLORIDE 0.9% IV 250 ML 30 ML IV CONT (13:35)
[2020-04-15] MEDS: WATER FOR IRRIGATION, STERILE 1,000 ML BOTTLE 1000 ML (14:58)
--- NOTE | 2020-04-15 16:01 | PM.IMPN ---
Progress Note: A&P Assessment and Plan (1) Pneumonia due to 2019-nCoV: Code(s): U07.1 - COVID-19; J12.89 - Other viral pneumonia Status: Acute Assessment and Plan: Inflammatory markers all slightly decreased, Now on 6L. Fever resolved. Dexamethasone begun 04/11. Remdesivir begun 04/12. 6-7 days in today ,with slight increase in 02 requirements will give convalescent plasma Monitor clinical progress and inflammatory marker She was encouraged to lie prone as often as possible and 02 sats consistently rise 2-4 % when she prones Added incentive spirometry CXR 04/14 slightly worse (2) Hypoxia: Code(s): R09.02 - Hypoxemia Status: Acute Assessment and Plan: Due to COVID-19 pneumonia. Stable on 6L. now Continue to attempt to wean O2 to keep sats >92% (3) Inflammatory arthritis: Code(s): M19.90 - Unspecified osteoarthritis, unspecified site Status: Acute Assessment and Plan: Patient with ALTHEA+ inflammatory arthritis. She is on HCQ and Prednisone at home. HCQ on hold. Monitor for s/sx while on steroids (4) Hypertension: Code(s): I10 - Essential (primary) hypertension Status: Acute Assessment and Plan: Patient's blood pressure was reviewed on 04/15. Blood pressure remains well controlled. Continue nebivolol Will continue current medications. (5) Chronic GERD: Code(s): K21.9 - Gastro-esophageal reflux disease without esophagitis Status: Acute Assessment and Plan: Stable. Continue pantoprazole (6) DVT prophylaxis: Code(s): Z29.9 - Encounter for prophylactic measures, unspecified Status: Acute Assessment and Plan: Lovenox 40mg Q12h Subjective Date/time seen: 04/15/20 16:01 Interval history: Date of service 04/15 59yo female with ALTHEA positive inflammatory arthritis admitted 04/11 with cough, dyspnea, fever. Oxygen desaturation to the mid-80s with ambulation. Tested positive for COVID on 04/10 COugh persistent productive of clear sputum but a little less. No CP but difficult to take deep breaths. +SOB. Decreased appetite. No n/v. Can still taste and smell. Exam Narrative: Exam Narrative: AF last 36Hrs 126/60 80 18 94% 6L Gen - NARD Chest - inspiratory crackles mid and lower lung leal bilaterally post but less prominent CV - RRR S1/S2 Abd - Soft, NT/ND, Positive BS Ext - No pedal edema, 2+ DP bilaterally. Neuro - Alert and oriented. Nonfocal exam. Psych - Nml mood and affect Skin - Warm and dry Objective Data Vital Signs Vital Signs: Vital Signs - 24 hr 04/14/20 20:00 04/14/20 21:45 04/15/20 00:30 Temperature 36.4 C Pulse Rate 64 Respiratory Rate 20 20 Blood Pressure 141/67 H Pulse Oximetry 93 86 L 04/15/20 00:40 04/15/20 00:45 04/15/20 01:10 Temperature 36.4 C Pulse Rate 65 Respiratory Rate 20 Blood Pressure 119/60 Pulse Oximetry 87 L 90 92 04/15/20 02:51 04/15/20 05:00 04/15/20 06:20 Temperature 36.8 C Pulse Rate 64 73 Respiratory Rate 20 20 Blood Pressure 134/66 Pulse Oximetry 92 90 90 04/15/20 08:00 04/15/20 08:13 04/15/20 08:30 Temperature 36.3 C L Pulse Rate 75 Respiratory Rate 12 Blood Pressure 126/61 Pulse Oximetry 88 L 94 94 04/15/20 08:43 04/15/20 12:00 04/15/20 13:03 Temperature 36.4 C L 36.2 C L Pulse Rate 80 67 65 Respiratory Rate 18 18 Blood Pressure 127/68 130/62 Pulse Oximetry 94 93 04/15/20 13:18 04/15/20 14:18 04/15/20 15:04 Temperature 36.3 C L 36.2 C L Pulse Rate 89 73 Respiratory Rate 20 16 Blood Pressure 131/62 116/54 L Pulse Oximetry 92 96 92 Intake/Output Intake/Output: Intake & Output 04/12/20 04/13/20 04/14/20 04/15/20 23:59 23:59 23:59 23:59 Intake Total 2050 1480 2320 1341 Output Total 002 535 4823 550 Balance 7786 770 7348 791 Meds/Results Medications: Active Medications Generic Name Dose Route Start L
[2020-04-16] VITALS (7 sets, daily range): BP systolic 115–135; BP diastolic 52–62; PULSE 64–76; RESP 16–22; TEMP 36.2–37.1; O2SAT 91–94
[2020-04-16 06:14] LABS: Alanine Aminotransferase 54 U/L (4-35)
[2020-04-16] MEDS: ENOXAPARIN 40 MG/0.4 ML SYRINGE SUB-Q ×2 (08:05→20:07)
[2020-04-16] MEDS: DEXAMETHASONE 2 MG TABLET 6 MG PO (08:05)
[2020-04-16] MEDS: CHOLECALCIFEROL 1,000 UNITS TABLET 5000 UNITS PO (08:05)
[2020-04-16] MEDS: BENZONATATE 100 MG CAPSULE 200 MG PO ×2 (08:05→13:40)
[2020-04-16] MEDS: PANTOPRAZOLE SOD SESQUIHYDRATE 20 MG TAB PO (08:06)
[2020-04-16] MEDS: NEBIVOLOL HCL 5 MG TABLET 10 MG PO (08:06)
[2020-04-16] MEDS: REMDESIVIR 100 MG/NS 250 ML 100 MG/250 ML BAG 250 MG IVPB (10:13)
--- NOTE | 2020-04-16 15:16 | PM.IMPN ---
Progress Note: A&P Assessment and Plan (1) Pneumonia due to 2019-nCoV: Code(s): U07.1 - COVID-19; J12.89 - Other viral pneumonia Status: Acute Assessment and Plan: Inflammatory markers all slightly decreased 04/15, Still on 6L. Fever resolved. Dexamethasone begun 04/11. Remdesivir completed today 04/16 convalescent plasma 04/15 Monitor clinical progress and inflammatory marker She was encouraged to lie prone as often as possible and 02 sats consistently rise 2-4 % when she prones Added incentive spirometry CXR 04/14 slightly worse, repeat if 02 sat deteriorates (2) Hypoxia: Code(s): R09.02 - Hypoxemia Status: Acute Assessment and Plan: Due to COVID-19 pneumonia. Stable on 6L. now Continue to attempt to wean O2 to keep sats >92% she does desat with walking to bathroom (3) Inflammatory arthritis: Code(s): M19.90 - Unspecified osteoarthritis, unspecified site Status: Acute Assessment and Plan: Patient with ALTHEA+ inflammatory arthritis. She is on HCQ and Prednisone at home. HCQ on hold. Monitor for s/sx while on steroids (4) Hypertension: Code(s): I10 - Essential (primary) hypertension Status: Acute Assessment and Plan: Patient's blood pressure was reviewed on 04/16. Blood pressure remains well controlled. Continue nebivolol Will continue current medications. (5) Chronic GERD: Code(s): K21.9 - Gastro-esophageal reflux disease without esophagitis Status: Acute Assessment and Plan: Stable. Continue pantoprazole (6) DVT prophylaxis: Code(s): Z29.9 - Encounter for prophylactic measures, unspecified Status: Acute Assessment and Plan: Lovenox 40mg Q12h Subjective Date/time seen: 04/16/20 15:16 Interval history: Date of service 04/16 59yo female with ALTHEA positive inflammatory arthritis admitted 04/11 with cough, dyspnea, fever. Oxygen desaturation to the mid-80s with ambulation. Tested positive for COVID on 04/10 COugh persistent productive of clear sputum but a little less. No CP but difficult to take deep breaths. +SOB. appetite a little better . No n/v. Exam Narrative: Exam Narrative: AF 134/60 64 18 94% 6L Gen - NARD Chest - inspiratory crackles mid and lower lung leal bilaterally post but less prominent CV - RRR S1/S2 Abd - Soft, NT/ND, Positive BS Ext - No pedal edema, 2+ DP bilaterally. Neuro - Alert and oriented. Nonfocal exam. Psych - Nml mood and affect Skin - Warm and dry Objective Data Vital Signs Vital Signs: Vital Signs - 24 hr 04/15/20 16:00 04/15/20 16:15 04/15/20 16:25 Temperature 36.3 C L Pulse Rate 71 Respiratory Rate 16 Blood Pressure 121/57 L Pulse Oximetry 90 75 L 90 04/15/20 20:00 04/16/20 00:00 04/16/20 04:00 Temperature 36.9 C 37.1 C 36.9 C Pulse Rate 76 76 65 Respiratory Rate 18 22 H 20 Blood Pressure 139/59 L 128/62 135/59 L Pulse Oximetry 93 93 93 04/16/20 08:00 04/16/20 08:06 Temperature 36.3 C L Pulse Rate 65 64 Respiratory Rate 18 Blood Pressure 133/58 L Pulse Oximetry 94 Intake/Output Intake/Output: Intake & Output 04/13/20 04/14/20 04/15/20 04/16/20 23:59 23:59 23:59 23:59 Intake Total 1480 2320 3131 500 Output Total 500 1250 1450 400 Balance 980 1070 1681 100 Meds/Results Medications: Active Medications Generic Name Dose Route Start Last Admin Trade Name Freq PRN Reason Stop Dose Admin Acetaminophen 650 mg 04/11/20 10:58 04/12/20 13:54 Acetaminophen 325 Mg Tablet PO 650 mg Q4H PRN Administration Mild Pain (1-3) or Fever Albuterol 2 puff 04/11/20 23:40 04/15/20 06:22 Albuterol Sulfate (*Sp) Aerosol 1 Puff INHALATION 2 puff QID PRN Administration shortness of breath or wheezing Benzonatate 200 mg 04/14/20 16:00 04/16/20 13:40 Benzonatate 100 Mg Capsule PO 200 mg TID EVANGELISTA Administration Dexamet
[2020-04-17] VITALS (10 sets, daily range): BP systolic 101–143; BP diastolic 45–62; PULSE 58–73; RESP 16–20; TEMP 36–36.9; O2SAT 91–94
[2020-04-17 06:24] LABS: Basophils Percent Auto 0.7 % (0.2-1.2); Eosinophils Percent Auto 0.3 % (0-4.4); Hematocrit 35.8 % (37.0-47.0); Hemoglobin 12.1 g/dL (12.0-15.0); Immature Granulocyte Absolute 0.41 K/mm3 (0.00-0.031); Immature Granulocyte Percent A 7.2 % (0-0.5); Lymphocytes Absolute Auto 0.94 K/mm3 (0.9-3.2); Lymphocytes Percent Auto 16.4 % (18.3-44.2); Mean Corpuscular HGB Conc 33.8 g/dl (32-36); Mean Corpuscular Hemoglobin 30.3 pg (26-34); Mean Corpuscular Volume 89.5 fl (80-100); Mean Platelet Volume 11.1 fl (7.4-10.4); Monocytes Absolute Auto 0.5 K/mm3 (0.1-0.6); Monocytes Percent Auto 7.9 % (2.6-8.5); Neutrophils Absolute Auto 3.9 K/mm3 (1.3-6.7); Neutrophils Percent Auto 67.5 % (45.5-73.1); Platelet Count Result 367 k/mm3 (150-375); Red Cell Distribution Width 12.1 % (11.5-14.5); White Blood Count 5.7 K/mm3 (4.5-10.0)
[2020-04-17 06:32] LABS: D Dimer 0.46 ug/mL (<0.48)
[2020-04-17 06:36] LABS: Alanine Aminotransferase 39 U/L (4-35); Albumin Level 2.9 g/dL (3.5-5.1); Alkaline Phosphatase 76 U/L (38-126); Aspartate Amino Transferase 27 U/L (14-36); Bilirubin,Total 0.6 mg/dL (0.2-1.3)
[2020-04-17 06:37] LABS: Anion Gap 4 mmol/L (8-16); Blood Urea Nitrogen 23 mg/dL (7-17); CRP 2.6 mg/dL (<1.0); Calcium 8.3 mg/dL (8.4-10.2); Carbon Dioxide 31 mmol/L (22-30); Chloride 102 mmol/L (98-107); Estimated CRCL calculation 82 ml/min; Estimated Glomerular Filt Rate > 60; Glucose 130 mg/dL (65-105); Lactate Dehydrogenase 628 U/L (313-618); Sodium 137 mmol/L (137-145)
[2020-04-17] MEDS: NEBIVOLOL HCL 5 MG TABLET 10 MG PO (08:01)
[2020-04-17] MEDS: DEXAMETHASONE 2 MG TABLET 6 MG PO (08:01)
[2020-04-17] MEDS: BENZONATATE 100 MG CAPSULE 200 MG PO ×3 (08:01→16:53)
[2020-04-17] MEDS: PANTOPRAZOLE SOD SESQUIHYDRATE 20 MG TAB PO (08:02)
[2020-04-17] MEDS: ENOXAPARIN 40 MG/0.4 ML SYRINGE SUB-Q ×2 (08:02→20:13)
[2020-04-17] MEDS: CHOLECALCIFEROL 1,000 UNITS TABLET 5000 UNITS PO (08:02)
--- NOTE | 2020-04-17 15:20 | PM.IMPN ---
Progress Note: A&P Assessment and Plan (1) Pneumonia due to 2019-nCoV: Code(s): U07.1 - COVID-19; J12.89 - Other viral pneumonia Status: Acute Assessment and Plan: Inflammatory markers all slightly decreased again today 04/17, decreased to 4L. Fever resolved. Dexamethasone begun 04/11(D#7). Remdesivir completed 04/16 convalescent plasma 04/15 Monitor clinical progress and inflammatory marker She was encouraged to lie prone as often as possible and 02 sats consistently rise 2-4 % when she prones incentive spirometry CXR 04/14 slightly worse, but 02 sats now improving and will need followup cxr (2) Hypoxia: Code(s): R09.02 - Hypoxemia Status: Acute Assessment and Plan: Due to COVID-19 pneumonia. Stable on 4L. now Continue to attempt to wean O2 to keep sats >92% she does desat with walking to bathroom (3) Inflammatory arthritis: Code(s): M19.90 - Unspecified osteoarthritis, unspecified site Status: Acute Assessment and Plan: Patient with ALTHEA+ inflammatory arthritis. She is on HCQ and Prednisone at home. HCQ on hold. Monitor for s/sx while on steroids (4) Hypertension: Code(s): I10 - Essential (primary) hypertension Status: Acute Assessment and Plan: Patient's blood pressure was reviewed on 04/17. Blood pressure remains well controlled. Continue nebivolol Will continue current medications. (5) Chronic GERD: Code(s): K21.9 - Gastro-esophageal reflux disease without esophagitis Status: Acute Assessment and Plan: Stable. Continue pantoprazole (6) DVT prophylaxis: Code(s): Z29.9 - Encounter for prophylactic measures, unspecified Status: Acute Assessment and Plan: Lovenox 40mg Q12h Subjective Date/time seen: 04/17/20 15:20 Interval history: Date of service 04/17 59yo female with ALTHEA positive inflammatory arthritis admitted 04/11 with cough, dyspnea, fever. Oxygen desaturation to the mid-80s with ambulation. Tested positive for COVID on 04/10 Cough slowly subsiding. No CP but difficult to take deep breaths. . appetite better . No n/v. Exam Narrative: Exam Narrative: AF 116/54 64 18 94% 4L Gen - NARD Chest - inspiratory crackles mid and lower lung leal bilaterally , continue to decrease CV - RRR S1/S2 Abd - Soft, NT/ND, Positive BS Ext - No pedal edema, 2+ DP bilaterally. Neuro - Alert and oriented. Nonfocal exam. Psych - Nml mood and affect Skin - Warm and dry Objective Data Vital Signs Vital Signs: Vital Signs - 24 hr 04/16/20 16:00 04/16/20 20:00 04/17/20 00:00 Temperature 36.2 C L 36.4 C 36.7 C Pulse Rate 68 68 71 Respiratory Rate 16 18 20 Blood Pressure 117/56 L 134/59 L 140/62 Pulse Oximetry 93 93 93 04/17/20 04:00 04/17/20 08:00 04/17/20 08:01 Temperature 36.3 C L 36.9 C Pulse Rate 58 L 65 60 Respiratory Rate 18 16 Blood Pressure 143/56 H 118/56 L Pulse Oximetry 94 91 04/17/20 10:00 04/17/20 12:00 04/17/20 13:38 Temperature 36.0 C L Pulse Rate 65 Respiratory Rate 16 Blood Pressure 115/54 L Pulse Oximetry 92 94 94 Intake/Output Intake/Output: Intake & Output 04/14/20 04/15/20 04/16/20 04/17/20 23:59 23:59 23:59 23:59 Intake Total 2320 3131 2450 1480 Output Total 1250 1450 1300 300 Balance 1070 1681 1150 1180 Meds/Results Medications: Active Medications Generic Name Dose Route Start Last Admin Trade Name Freq PRN Reason Stop Dose Admin Acetaminophen 650 mg 04/11/20 10:58 04/12/20 13:54 Acetaminophen 325 Mg Tablet PO 650 mg Q4H PRN Administration Mild Pain (1-3) or Fever Albuterol 2 puff 04/11/20 23:40 04/15/20 06:22 Albuterol Sulfate (*Sp) Aerosol 1 Puff INHALATION 2 puff QID PRN Administration shortness of breath or wheezing Benzonatate 200 mg 04/14/20 16:00 04/17/20 13:35 Benzonatate 100 Mg Capsule PO 200 mg TID [facility]
[2020-04-18] VITALS (9 sets, daily range): BP systolic 100–145; BP diastolic 53–71; PULSE 62–86; RESP 20; TEMP 36.5–37; O2SAT 93–99
--- NOTE | 2020-04-18 02:12 | PC.NURSE ---
04/18/20 @ 0130 REPORT RCV'D FROM DIEUDONNE Chan RN. PT OBSERVED TO BE RESTFUL IN BED. LAYING IN RT LATERAL POSITION. ENCOURAGED TO PRONE WHENEVER POSSIBLE. CONT PULSE OX ON. HUM O2 PNC ON 4LPM. NO RESP DISTRESS NOTED. CALL LIGHT/PERSONAL ITEMS IN REACH.
[2020-04-18] MEDS: DEXAMETHASONE 2 MG TABLET 6 MG PO (09:03)
[2020-04-18] MEDS: ENOXAPARIN 40 MG/0.4 ML SYRINGE SUB-Q ×2 (09:04→20:11)
[2020-04-18] MEDS: CHOLECALCIFEROL 1,000 UNITS TABLET 5000 UNITS PO (09:04)
[2020-04-18] MEDS: BENZONATATE 100 MG CAPSULE 200 MG PO ×3 (09:04→17:16)
[2020-04-18] MEDS: NEBIVOLOL HCL 5 MG TABLET 10 MG PO (09:04)
[2020-04-18] MEDS: PANTOPRAZOLE SOD SESQUIHYDRATE 20 MG TAB PO (09:05)
--- NOTE | 2020-04-18 11:28 | PC.NURSE ---
1100 o2 was turned down t0 3l n/c , instructed pt tp call for assist to go to bathroom , to monitor o2 sat and if need to to increase o2 with activity
--- NOTE | 2020-04-18 16:16 | PM.IMPN ---
Progress Note: A&P Assessment and Plan (1) Pneumonia due to 2019-nCoV: Code(s): U07.1 - COVID-19; J12.89 - Other viral pneumonia Status: Acute Assessment and Plan: Inflammatory markers all slightly decreased again today 04/17, decreased to 4L. Fever resolved. Dexamethasone begun 04/11(D#8). Remdesivir completed 04/16 convalescent plasma 04/15 Monitor clinical progress and inflammatory marker again 04/19 She was encouraged to lie prone as often as possible and 02 sats consistently rise 2-4 % when she prones incentive spirometry CXR 04/14 slightly worse, but 02 sats now improving and will need followup cxr later as outpt (2) Hypoxia: Code(s): R09.02 - Hypoxemia Status: Acute Assessment and Plan: Due to COVID-19 pneumonia. Stable on 4L. now Continue to attempt to wean O2 to keep sats >92% she does desat with walking to bathroom Home 02 eval 04/19 (3) Inflammatory arthritis: Code(s): M19.90 - Unspecified osteoarthritis, unspecified site Status: Acute Assessment and Plan: Patient with ALTHEA+ inflammatory arthritis. She is on HCQ and Prednisone at home. HCQ on hold. Monitor for s/sx while on steroids (4) Hypertension: Code(s): I10 - Essential (primary) hypertension Status: Acute Assessment and Plan: Patient's blood pressure was reviewed on 04/17. Blood pressure remains well controlled. Continue nebivolol Will continue current medications. (5) Chronic GERD: Code(s): K21.9 - Gastro-esophageal reflux disease without esophagitis Status: Acute Assessment and Plan: Stable. Continue pantoprazole (6) DVT prophylaxis: Code(s): Z29.9 - Encounter for prophylactic measures, unspecified Status: Acute Assessment and Plan: Lovenox 40mg Q12h Subjective Date/time seen: 04/18/20 16:16 Interval history: Date of service 04/18 59yo female with ALTHEA positive inflammatory arthritis admitted 04/11 with cough, dyspnea, fever. Oxygen desaturation to the mid-80s with ambulation. Tested positive for COVID on 04/10 Cough slowly subsiding. No CP but difficult to take deep breaths. . appetite better . No n/v. Exam Narrative: Exam Narrative: AF 124/64 72 18 97% 4L Gen - NARD sitting up in bed Chest - inspiratory crackles mid and lower lung leal bilaterally , continue to decrease CV - RRR S1/S2 Abd - Soft, NT/ND, Positive BS Ext - No pedal edema, 2+ DP bilaterally. Neuro - Alert and oriented. Nonfocal exam. Psych - Nml mood and affect Skin - Warm and dry Objective Data Vital Signs Vital Signs: Vital Signs - 24 hr 04/17/20 19:44 04/17/20 21:23 04/18/20 00:00 Temperature 36.8 C 36.8 C Pulse Rate 73 79 Respiratory Rate 20 20 Blood Pressure 109/45 L 122/58 L Pulse Oximetry 93 92 93 04/18/20 04:00 04/18/20 08:00 04/18/20 09:04 Temperature 36.5 C 36.9 C Pulse Rate 62 64 78 Respiratory Rate 20 20 Blood Pressure 145/53 H 124/64 Pulse Oximetry 98 97 04/18/20 11:00 04/18/20 12:00 Temperature 36.6 C Pulse Rate 72 Respiratory Rate 20 Blood Pressure 100/57 L Pulse Oximetry 97 94 Intake/Output Intake/Output: Intake & Output 04/15/20 04/16/20 04/17/20 04/18/20 23:59 23:59 23:59 23:59 Intake Total 3131 2450 2405 780 Output Total 1450 1300 1100 600 Balance 1681 1150 1305 180 Meds/Results Medications: Active Medications Generic Name Dose Route Start Last Admin Trade Name Freq PRN Reason Stop Dose Admin Acetaminophen 650 mg 04/11/20 10:58 04/12/20 13:54 Acetaminophen 325 Mg Tablet PO 650 mg Q4H PRN Administration Mild Pain (1-3) or Fever Albuterol 2 puff 04/11/20 23:40 04/15/20 06:22 Albuterol Sulfate (*Sp) Aerosol 1 Puff INHALATION 2 puff QID PRN Administration shortness of breath or wheezing Benzonatate 200 mg 04/14/20 16:00 04/18/20 13:21 Benzonatate 100 Mg Capsule PO
[2020-04-19] VITALS (8 sets, daily range): BP systolic 109–152; BP diastolic 50–64; PULSE 61–81; RESP 18–20; TEMP 36.6–36.9; O2SAT 91–99
[2020-04-19 07:16] LABS: Basophils Absolute Auto 0.1 K/mm3 (0.0-0.1); Eosinophils Absolute Auto 0.1 K/mm3 (0-0.3); Eosinophils Percent Auto 0.6 % (0-4.4); Hematocrit 38.3 % (37.0-47.0); Hemoglobin 12.7 g/dL (12.0-15.0); Immature Granulocyte Absolute 0.64 K/mm3 (0.00-0.031); Immature Granulocyte Percent A 8.3 % (0-0.5); Lymphocytes Absolute Auto 1.17 K/mm3 (0.9-3.2); Lymphocytes Percent Auto 15.2 % (18.3-44.2); Mean Corpuscular HGB Conc 33.2 g/dl (32-36); Mean Corpuscular Hemoglobin 29.7 pg (26-34); Mean Corpuscular Volume 89.7 fl (80-100); Mean Platelet Volume 10.6 fl (7.4-10.4); Monocytes Absolute Auto 0.5 K/mm3 (0.1-0.6); Monocytes Percent Auto 6.9 % (2.6-8.5); Neutrophils Absolute Auto 5.2 K/mm3 (1.3-6.7); Platelet Count Result 427 k/mm3 (150-375); Red Blood Count 4.27 M/mm3 (4.2-5.4); Red Cell Distribution Width 12.4 % (11.5-14.5); White Blood Count 7.7 K/mm3 (4.5-10.0)
[2020-04-19 07:31] LABS: Alanine Aminotransferase 30 U/L (4-35); Albumin Level 2.9 g/dL (3.5-5.1); Alkaline Phosphatase 74 U/L (38-126); Anion Gap 1 mmol/L (8-16); Aspartate Amino Transferase 23 U/L (14-36); Bilirubin,Total 0.5 mg/dL (0.2-1.3); Blood Urea Nitrogen 26 mg/dL (7-17); CRP 1.3 mg/dL (<1.0); Calcium 8.5 mg/dL (8.4-10.2); Carbon Dioxide 35 mmol/L (22-30); Chloride 100 mmol/L (98-107); Estimated CRCL calculation 72 ml/min; Estimated Glomerular Filt Rate > 60; Glucose 120 mg/dL (65-105); Lactate Dehydrogenase 532 U/L (313-618); Potassium 4.6 mmol/L (3.4-5.0); Sodium 136 mmol/L (137-145)
[2020-04-19] MEDS: PANTOPRAZOLE SOD SESQUIHYDRATE 20 MG TAB PO (08:47)
[2020-04-19] MEDS: BENZONATATE 100 MG CAPSULE 200 MG PO ×3 (08:47→16:21)
[2020-04-19] MEDS: ENOXAPARIN 40 MG/0.4 ML SYRINGE SUB-Q ×2 (08:47→22:05)
[2020-04-19] MEDS: NEBIVOLOL HCL 5 MG TABLET 10 MG PO (08:47)
[2020-04-19] MEDS: DEXAMETHASONE 2 MG TABLET 6 MG PO (08:47)
[2020-04-19] MEDS: CHOLECALCIFEROL 1,000 UNITS TABLET 5000 UNITS PO (08:47)
--- NOTE | 2020-04-19 11:50 | PCDIET ---
Nutrition Follow-Up Complete: Pt current nutrition is Regular +Enlive BID Nutrition recommendation: agree Last recorded weight is 96 kg, recommend updated wt Bowel Motility: no BM since , recommend magnesium citrate Labs Reviewed: Na 136, Glucose 120 Meds Noted: Protonix, Vitamin D (5000IU), Dexamethasone Additional Notes: Pt on appropriate diet eating 75-100% of all meals. We will continue to monitor for adequate intake every 7 days.
--- NOTE | 2020-04-19 16:59 | PM.IMPN ---
Progress Note: A&P Assessment and Plan (1) Pneumonia due to 2019-nCoV: Code(s): U07.1 - COVID-19; J12.89 - Other viral pneumonia Status: Acute Assessment and Plan: Inflammatory markers all essentially in normal range with crp borderline elevated at 1.3 today 04/19, decreased to 2L. Fever resolved. Dexamethasone begun 04/11(D#9). Remdesivir completed 04/16 convalescent plasma 04/15 She was encouraged to lie prone as often as possible and 02 sats consistently rise 2-4 % when she prones incentive spirometry CXR 04/14 slightly worse, but 02 sats now improving and will need followup cxr later as outpt Home eval and probable d/c 04/20 (2) Hypoxia: Code(s): R09.02 - Hypoxemia Status: Acute Assessment and Plan: Due to COVID-19 pneumonia. Stable on 2L. now Continue to attempt to wean O2 to keep sats >92% she does desat with walking to bathroom Home eval 04/20 (3) Inflammatory arthritis: Code(s): M19.90 - Unspecified osteoarthritis, unspecified site Status: Acute Assessment and Plan: Patient with ALTHEA+ inflammatory arthritis. She is on HCQ and Prednisone at home. HCQ on hold. Monitor for s/sx while on steroids (4) Hypertension: Code(s): I10 - Essential (primary) hypertension Status: Acute Assessment and Plan: Patient's blood pressure was reviewed on 04/19. Blood pressure remains well controlled. Continue nebivolol Will continue current medications. (5) Chronic GERD: Code(s): K21.9 - Gastro-esophageal reflux disease without esophagitis Status: Acute Assessment and Plan: Stable. Continue pantoprazole (6) DVT prophylaxis: Code(s): Z29.9 - Encounter for prophylactic measures, unspecified Status: Acute Assessment and Plan: Lovenox 40mg Q12h Subjective Date/time seen: 04/19/20 16:59 Interval history: Date of service 04/19 59yo female with ALTHEA positive inflammatory arthritis admitted 04/11 with cough, dyspnea, fever. Oxygen desaturation to the mid-80s with ambulation. Tested positive for COVID on 04/10 Cough slowly subsiding. No CP but difficult to take deep breaths. still . appetite better . No n/v. Exam Narrative: Exam Narrative: AF 110/54 72 18 94% 2L Gen - NARD sitting up in bed Chest - inspiratory crackles mid and lower lung leal bilaterally still CV - RRR S1/S2 Abd - Soft, NT/ND, Positive BS Ext - No pedal edema, 2+ DP bilaterally. Neuro - Alert and oriented. Nonfocal exam. Psych - Nml mood and affect Skin - Warm and dry Objective Data Vital Signs Vital Signs: Vital Signs - 24 hr 04/18/20 17:15 04/18/20 20:00 04/19/20 00:00 Temperature 36.9 C 36.9 C Pulse Rate 86 64 Respiratory Rate 20 20 Blood Pressure 139/61 129/50 L Pulse Oximetry 94 99 95 04/19/20 04:00 04/19/20 07:43 04/19/20 08:47 Temperature 36.8 C 36.9 C Pulse Rate 61 65 74 Respiratory Rate 18 20 Blood Pressure 152/60 H 134/64 Pulse Oximetry 99 94 04/19/20 09:00 04/19/20 11:52 04/19/20 15:30 Temperature 36.7 C 36.9 C Pulse Rate 64 72 Respiratory Rate 20 20 Blood Pressure 109/60 111/53 L Pulse Oximetry 94 93 94 Intake/Output Intake/Output: Intake & Output 04/16/20 04/17/20 04/18/20 04/19/20 23:59 23:59 23:59 23:59 Intake Total 2450 2405 1480 940 Output Total 1300 1100 1400 400 Balance 1150 1305 80 540 Meds/Results Medications: Active Medications Generic Name Dose Route Start Last Admin Trade Name Freq PRN Reason Stop Dose Admin Acetaminophen 650 mg 04/11/20 10:58 04/12/20 13:54 Acetaminophen 325 Mg Tablet PO 650 mg Q4H PRN Administration Mild Pain (1-3) or Fever Albuterol 2 puff 04/11/20 23:40 04/15/20 06:22 Albuterol Sulfate (*Sp) Aerosol 1 Puff INHALATION 2 puff QID PRN Administration shortness of breath or wheezing Benzonatate 200 mg 04/14/20 16:00 04/19/20 16:
[2020-04-20] VITALS (9 sets, daily range): BP systolic 104–132; BP diastolic 50–54; PULSE 62–88; RESP 16–20; TEMP 35.8–36.6; O2SAT 87–99
[2020-04-20] MEDS: BENZONATATE 100 MG CAPSULE 200 MG PO (07:38)
[2020-04-20] MEDS: ENOXAPARIN 40 MG/0.4 ML SYRINGE SUB-Q (07:38)
[2020-04-20] MEDS: DEXAMETHASONE 2 MG TABLET 6 MG PO (07:38)
[2020-04-20] MEDS: CHOLECALCIFEROL 1,000 UNITS TABLET 5000 UNITS PO (07:39)
[2020-04-20] MEDS: PANTOPRAZOLE SOD SESQUIHYDRATE 20 MG TAB PO (07:39)
[2020-04-20] MEDS: NEBIVOLOL HCL 5 MG TABLET 10 MG PO (07:40)
--- NOTE | 2020-04-20 11:47 | HOMEO2EVAL ---
Home Oxygen Evaluation RC: Home Oxygen (O2) Evaluation Start: 04/19/20 07:14 Freq: ONCE Status: Active Protocol: RPE Activity Type Activity Date Activity User E-Sign Co-Sign Detail Recorded Client Recorded Date Recorded By Document 04/20/20 11:15 [email or web address] [email or web address] 04/20/20 11:46 KRM Document 04/20/20 11:17 [email or web address] 04/20/20 11:46 KRM Document 04/20/20 11:19 [email or web address] [email or web address] 04/20/20 11:46 KRM Document 04/20/20 11:21 [email or web address] [email or web address] 04/20/20 11:46 KRM Document 04/20/20 11:23 [email or web address] [email or web address] 04/20/20 11:46 KRM 04/20/20 04/20/20 04/20/20 11:15 11:17 11:19 Home O2 Evaluation Test Phase Resting Exercise Exercise Oxygen Delivery Room Air Room Air Nasal Cannula Oxygen Flow Rate (L/min) 1 Pulse Oximetry (90-100 %) 90 87 L 88 L Pulse Rate (60-100 beats/min) 72 88 87 Activity Tolerance Good Good Ambulation Distance (feet) Home Oxygen Evaluation Comments Treatment Charges O2 Evaluation 04/20/20 04/20/20 11:21 11:23 Home O2 Evaluation Test Phase Exercise Exercise Oxygen Delivery Nasal Cannula Nasal Cannula Oxygen Flow Rate (L/min) 2 3 Pulse Oximetry (90-100 %) 89 L 90 Pulse Rate (60-100 beats/min) 84 74 Activity Tolerance Good Good Ambulation Distance (feet) 50 Home Oxygen Evaluation Comments 3LPM WITH ACTIVITY. Treatment Charges
--- NOTE | 2020-04-20 11:57 | PCRCNOTE ---
HOME O2 SET UP WITH [facility] . 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
--- NOTE | 2020-04-20 18:05 | PM.DS ---
DS: Admitting Diagnosis Admitting Diagnosis Admitting Diagnosis: Acute respiratory failure with hypoxia and COVID pneumonia DS: Discharge Diagnosis Discharge Diagnosis (1) Pneumonia due to 2019-nCoV: Code(s): U07.1 - COVID-19; J12.89 - Other viral pneumonia Status: Acute Assessment and Plan: Inflammatory markers all essentially in normal range with crp borderline elevated at 1.3 04/19, decreased to 2L. Fever resolved. Dexamethasone begun 04/11 and finished 10 day course. Remdesivir completed 04/16 convalescent plasma 04/15 She was encouraged to lie prone as often as possible and 02 sats consistently rise 2-4 % when she prones, while an inpatient CXR 04/14 slightly worse, but 02 sats now improving and will need followup cxr later as outpt Home 02 eval today revealed saturation 90% on room air at rest but desaturated requiring 3 L nasal cannula with activity (2) Hypoxia: Code(s): R09.02 - Hypoxemia Status: Acute Assessment and Plan: Due to COVID-19 pneumonia. Stable . As above O2 3 L nasal cannula with activity (3) Inflammatory arthritis: Code(s): M19.90 - Unspecified osteoarthritis, unspecified site Status: Acute Assessment and Plan: Patient with ALTHEA+ inflammatory arthritis. She is on HCQ at home. HCQ restart Inactive problem while here (4) Hypertension: Code(s): I10 - Essential (primary) hypertension Status: Acute Assessment and Plan: Patient's blood pressure was reviewed on 04/20. Blood pressure remains well controlled. Continue nebivolol Will continue current medications. (5) Chronic GERD: Code(s): K21.9 - Gastro-esophageal reflux disease without esophagitis Status: Acute Assessment and Plan: Stable. Continue pantoprazole DS: Summary Hospital Course Hospital Course: 59-year-old hypertensive female admitted with COVID pneumonia respiratory failure with hypoxia. Received remdesivir, Decadron, and convalescent [place]. O2 saturation did continue to improve and inflammatory markers fell to normal. At discharge still required 3 L nasal cannula with exertion and home O2 was arranged. She will follow-up with her primary care within 2-3 weeks for evaluation repeat chest x-ray She does have a home pulse ox to monitor her course also Time Spent with Patient Time attestation: Total time spent providing and/or coordinating discharge services: 35 minutes Exam Narrative: Exam Narrative: Condition on discharge Blood pressure 110/56 pulse is 72 saturating 90% on room air afebrile Lungs bibasilar dry crackles CV regular rate rhythm Extremities without edema good distal pulses Neuro alert no focal deficits Up in about taking a diet well and stable to be discharged home with home O2 for exertion or p.r.n. Discharge Plan Discharge Attending physician on discharge: Henry Marion Discharging Clinician: Henry Marion Patient Disposition: Home, Self-Care Activity: as tolerated Diet: low sodium Discharge Instructions: use 02 with activity and as needed Patient Instructions: Antibiotic Form, Pain Management (GEN), Dyspnea (GEN), Shortness of Breath (GEN), COVID-19 (Coronavirus Disease 2019) (GEN), COVID-19 and Chronic Health Conditions (GEN), COVID-19: Slow the Coronavirus Spread (GEN) Stand Alone Forms: General Discharge Information Follow-up/Referrals: Jhon Pickard DO [Primary Care Provider] - 3 Weeks Discharge Medications: Continued Nexium 24HR 20 mg tablet,delayed release (DR/EC) 20 mg PO DAILY RF: 0 cholecalciferol (vitamin D3) 10,000 unit capsule 10,000 unit PO DAILY RF: 0 Bystolic 10 mg tablet 10 mg PO DAILY Qty: 90 RF: 1 albuterol sulfate 90 mcg/actuation HFA aerosol inhaler 2 puff INHALATION QID PRN (Reason: shortness of breath or wheezing) Qty: 6.7 RF: 0 hydroxychloroquine [Plaquenil] 200 mg tablet 200 mg PO B
== END 2020-04-20 13:16 | disposition home or self-care (01) | DRG 177 ==
LOC: ANHED 10:57 → ANH3MEDSUR 13:16
PROVIDERS: Internal Medicine; Physician Assistant; Admitting Provider Family Medicine; Emergency Provider Emergency Medicine; PCP Internal Medicine; Visit Provider Internal Medicine
DX: U07.1 COVID-19 (principal); J12.89 Other viral pneumonia; J96.01 Acute respiratory failure with hypoxia; E87.1 Hypo-osmolality and hyponatremia; M19.90 Unspecified osteoarthritis, unspecified site; I10 Essential (primary) hypertension; K21.9 Gastro-esophageal reflux disease without esophagitis; Z90.710 Acquired absence of both cervix and uterus; Z87.891 Personal history of nicotine dependence
CPT/HCPCS: 36415; 36430; 36600; 71045; 80048; 80053; 80076; 82306; 82570; 82728; 82805; 83615; 83735; 84300; 84460; 85025; 85027; 85380; 86140; 86900; 86901; 87635; 87804; 94618; 96361; 96372; 96374; 99284; 99285; A9270; C9803; G0378; J1100; J1650; J2405; J7030; J7050; J7512; J8540; P9059; U0003

== ENCOUNTER → 2020-05-05 08:46 | Outpatient (CLI) | payer OTHER, SELFPAY ==
--- NOTE | ~2020-05-05 | XR_ITS ---
XR chest 2V 05/05/2020 09:04 Indication: Pneumonia Procedure: 2 view chest Comparison: 04/14/2020 Findings: Near-complete resolution of extensive bilateral airspace disease, consistent with resolving pneumonia. Heart size normal. No significant pleural effusion or pneumothorax. Impression: 1: Near-complete resolution of bilateral airspace disease, consistent with resolving pneumonia. Reviewed, dictated and finalized at location A. [employer] Impression: 1: Near-complete resolution of bilateral airspace disease, consistent with reso lving pneumonia.
== END ==
PROVIDERS: PCP Internal Medicine; Visit Provider Internal Medicine
DX: U07.1 COVID-19 (principal)
CPT/HCPCS: 71046

== ENCOUNTER → 2020-11-19 07:45 | Outpatient (CLI) | payer OTHER, SELFPAY ==
--- NOTE | ~2020-11-19 | US_ITS ---
EXAMINATION: US abdomen complete DATE: 11/19/2020 08:21 INDICATION: Other specified abnormal findings of blood chemistry, elevated liver enzymes TECHNIQUE: Multiple grayscale and Doppler ultrasound images of the abdomen were obtained. COMPARISON: 05/25/2019 FINDINGS: The head and body of the pancreas are normal. The pancreatic tail is obscured by bowel gas. The liver demonstrates increased echogenicity, heterogenous echotexture, and decreased through trans mission. There is a 2.4 cm cyst of the liver. No surface nodularity. Normal hepatopetal flow in the m ain portal vein. There is a 2 mm echogenic focus of the anterior gallbladder wall with comet tail art ifact, likely adenomyomatosis. The gallbladder is otherwise normal with no abnormal wall thickening, pericholecystic fluid or stones. The normal common bile duct measures 4 mm. There was no sonographic Mccabe sign. The visualized portions of the aorta and inferior vena cava are normal. The right kidney measures 10.7 x 4.2 x 5.8 cm. The left kidney measures 11.5 x 4.8 x 5.6 cm. The kidn eys demonstrate normal parenchymal echogenicity. There is no hydronephrosis. The spleen is normal in appearance and measures 10.9 cm. IMPRESSION: 1. Diffuse hepatic steatosis. Reviewed, dictated and finalized at location B.
--- NOTE | ~2020-11-19 | XR_ITS ---
XR chest 2V DATE: 11/19/2020 08:28 INDICATION: Cough TECHNIQUE: 2 views COMPARISON: 05/05/2020 2 view chest FINDINGS: Normal heart size. No hilar or mediastinal enlargement. No pulmonary infiltrate or consolid ation, pleural effusion or pulmonary vascular congestion or pneumothorax. Diffuse osteopenia. IMPRESSION: No active cardiopulmonary disease Reviewed, dictated and finalized at location A.
== END ==
PROVIDERS: PCP Internal Medicine; Visit Provider Internal Medicine
DX: R05 Cough (principal); R79.89 Other specified abnormal findings of blood chemistry; K76.0 Fatty (change of) liver, not elsewhere classified
CPT/HCPCS: 71046; 76700

== ENCOUNTER → 2022-06-23 17:37 | Outpatient (CLI) | payer OTHER, SELFPAY ==
--- NOTE | ~2022-06-23 | XR_ITS ---
Thoracic spine: Clinical Indication: Back pain AP and lateral views were performed. No fracture is seen. There is normal alignment of the vertebrae. The intervertebral disc spaces appe ar normal. Paravertebral soft tissues appear normal. Impression: No significant abnormalities noted. Reviewed, dictated and finalized at [facility]. [facility] Impression: No significant abnormalities noted.
== END ==
PROVIDERS: PCP Internal Medicine; Visit Provider Physician Assistant
DX: M54.9 Dorsalgia, unspecified (principal)
CPT/HCPCS: 72072

== ENCOUNTER 2023-08-23 08:47 | Outpatient (CLI) | payer MEDICARE, SELFPAY ==
--- NOTE | 2023-10-05 13:31 | WPDHOMESLEEP ---
Sleep Study - Home Unattended Date of Study: 08/23/23 Ordering Provider: Rosalio Grossman PA-C Interpreting Provider: Lolis Jeffers MD Home Sleep Study Type: Watch PAT Height: 1.63 m Weight: 95.254 kg Body Mass Index: 36.0 Neck Circumference (inches): 15 [place]: 5 Reason for Sleep Study Multiple nighttime awakenings, daytime fatigue Sleep History The patient was originally scheduled to have the home sleep test on 08/23/2023. She performed the test on 10/04/2023. Dulce Zabala is a 63-year-old woman who has difficulty falling asleep and staying asleep. Medical co-morbidities include lupus, SVT, GERD, hypertension, hyperlipidemia and low vitamin-D levels. She has excessive daytime sleepiness. She does not awaken from sleep feeling short of breath. She occasionally awakens at night with heartburn, belching or coughing. She frequently snores but only rarely is it loud enough that others complain about it. She occasionally has difficulty sleeping when she has a cold. She does not wake up gasping for breath at night or have breathing problems at night reported to her by others. She occasionally sweats excessively at night and notices her heart pounding or beating irregularly at night. She rarely falls asleep during the day, rarely falls asleep involuntarily but never falls asleep while driving. She does not have loss of muscle tone with strong emotion. 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 She does not feel paralyzed on waking or falling asleep. She rarely has vivid dreamlike scenes upon awakening or falling asleep. She rarely feels afraid to go to sleep. She rarely has nightmares. She rarely recalls her dreams. She occasionally has racing thoughts. She never feels sad or depressed. She occasionally has anxiety. She occasionally notices parts her body jerking. She rarely kicks at night. She occasionally has crawling and aching feelings in her legs. She occasionally has leg pain during the night. There is no problem with morning jaw pain but occasionally she grinds her teeth during sleep. She occasionally is bothered by pain during the day. She rarely is awakened by pain at night. She occasionally wakes up feeling stiff in the morning, wakes up with sore achy muscles and pain in the neck and spine. She has fatigue, insomnia and takes antacids regularly. Normal bedtime is between 10:30 p.m. and 11:00 p.m., falling asleep after 1/2 hour, typically waking up between 3 and 4 times at night for no apparent reason. She will pray, try to go back to sleep, and this may take anywhere between 5 and 10 minutes. These awakenings occur in the middle of the night and in the greens or grounds superintendent hours. Her normal wake time is 6:30 a.m.. On weekends, bedtime is the same, 10:30-11 p.m. and wake time is between 6:30 a.m. to 7:00 a.m.. She estimates getting between 6 and 7 hours of sleep at night. She only occasionally wakes up feeling refreshed. She frequently has excessive daytime sleepiness. She does not take naps in the afternoon or evening. A short nap 15 minutes long may be refreshing. She is usually drowsy for an hour after waking. She feels better in the mornings or evenings, feeling less optimal in the afternoons. Habits: Former smoker. No alcohol. [facility] Past Medical History Medical History (Updated 10/05/23 @ 14:58 by Lolis Jeffers MD) ALTHEA positive Bilateral hand pain Chronic GERD Fatty liver Hyperlipidemia Hypertension Inflammatory arthritis Rectal polyp Sciatica of right side Shingles (~01/2020) Undifferentiated connective tissue disease Vitamin D deficiency Surgical History Surgical History (Updated 10/05/23 @ 14:47 by Lolis Jeffers MD) History of shoulder surgery Right side History of tonsillectomy History of total abdominal hysterectomy and bilateral salpingo-oophorectomy History of tubal ligation Family History Family History ([place]ie[place]
[2023-10-05 13:34] VITALS: BMI 36.0
== END 2023-10-05 09:55 | disposition home or self-care (01) ==
PROVIDERS: PCP Internal Medicine; Visit Provider Physician Assistant
DX: G47.33 Obstructive sleep apnea (adult) (pediatric) (principal); G47.10 Hypersomnia, unspecified; Z68.36 Body mass index [BMI] 36.0-36.9, adult
CPT/HCPCS: 95800

== ENCOUNTER 2024-07-04 07:58 | Outpatient (CLI) | payer MEDICARE, SELFPAY ==
--- OUTSIDE RECORDS SUMMARY | 2024-07-04 08:05 | XMS_ITS | Referral Summary ---
Author Organization [facility] [address] Address [address] [place] [address] Care Team Providers Care Sausage Wrapper Name Role Phone Andrew Faustin DO Primary Care Provider [phone] Encounters Date Type Department Care Team Description 06/28/2024 8:15 AM LEAD BURNER Ancillary Procedure [facility] Cardiology at [address] [place] [phone] Paroxysmal atrial fibrillation (HCC) 06/14/2024 9:45 AM LEAD BURNER Office Visit [facility] Cardiology at [address] [place] [phone] Michael Rainey MD Paroxysmal SVT (supraventricular tachycardia) (Primary Dx); Paroxysmal atrial fibrillation (HCC) 05/23/2024 10:00 AM LEAD BURNER Ancillary Procedure [facility] Cardiology at [address] [place] [phone] Re-entry ventricular arrhythmia (HCC) 05/23/2024 8:00 AM LEAD BURNER Office Visit [facility] Cardiology at [address] [place] [phone] Michael Rainey MD Paroxysmal SVT (supraventricular tachycardia) (Primary Dx); Lipid screening from Last 3 Months Allergies Active Allergy Reactions Criticality Noted Date Comments Morphine Nausea & Vomiting Low Oseltamivir Hallucinations Medium 08/01/2017 Medications ibuprofen (ADVIL) 200 mg tablet take 1 tablet by oral route every 6 hours as needed with food 0 0 05/15/[address] (NexIUM) 20 mg capsule take 1 capsule by oral route every day 0 08/13/2004 Active cholecalciferol (VITAMIN D-3) 98027 unit capsuleIndicati ons:Vitamin D Deficiency Take 1 capsule (10,000 Units total) by mouth daily Active hydrOXYchloroQU INE (PLAQUENIL) 200 mg tablet Take 1 tablet (200 mg total) by mouth 2 (two) times a day 04/27/2020 Active metoprolol XL (TOPROL-XL) 50 mg extended release tablet TAKE ONE TABLET BY MOUTH DAILY 90 tablet 04/16/2024 Active Active Problems Problem Noted Date Diagnosed Date Paroxysmal atrial fibrillation 06/14/2024 Paroxysmal SVT (supraventricular tachycardia) Social History Tobacco Use Types Packs/Day Years Used Date Smoking Tobacco: Former Cigarettes Q uit: 08/01/1977 Smokeless Tobacco: Never Alcohol Use Standard Drinks/Week Comments Yes 1 (1 standard drink = 0.6 oz pur e alcohol) Comments Unknown Sex and Gender Information Value Date Recorded Sex Assigned at Not on file Legal Sex Female 7:00 PM LEAD BURNER Gender Identity Not on file Sexual Orientation Not on file Last Filed Vital Signs Vital Sign [place] Time Taken Comments Blood Pressure 134/80 06/14/2024 9:39 AM LEAD BURNER Pulse 82 06/14/2024 9:39 AM LEAD BURNER Temperature - - Respiratory Rate - - Oxygen Saturation 96% 06/14/2024 9:39 AM LEAD BURNER Inhaled Oxygen Concentration - - Weight 99.8 kg (220 lb) 06/14/2024 9:39 AM LEAD BURNER Height 162.6 cm (5' 4 ) 06/14/2024 9:39 AM LEAD BURNER Body Mass Index 37.76 06/14/2024 9:39 AM LEAD BURNER Plan of Treatment Not on file Procedures Procedure Name Priority Date/Time Associated Diagnosis Comments TRANSTHORACIC ECHO (TTE) COMPLETE W DOPPLER/CF WO CONTRAST Routine 06/28/2024 8:44 AM LEAD BURNER Paroxysmal atrial fibrillation (HCC) EXTENDED/HALFWAY HOLTER PATCH (>48 HOURS UP TO 7 DAYS) Routine 05/24/2024 12:05 PM LEAD BURNER Re-entry ventricular arrhythmia (HCC) POCT LIPID PANEL Routine 05/23/2024 7:56 AM LEAD BURNER Lipid screening from Last 3 Months Results * TRANSTHORACIC ECHO (TTE) COMPLETE W DOPPLER/CF WO CONTRAST (06/28/2024 8:44 AM LEAD BURNER) LV EF 65-70 % CONS SCIMAGE Anatomical Region Laterality Modality Ultrasound 06/28/2024 8:09 AM LEAD BURNER Narrative 06/28/2024 6:34 PM LEAD BURNER [facility] Cardiology [address], [address], [place] [address] P:[phone] P:[phone] Echocardiographic Report Patient Name: LUI ZABALA A : 1960 Study Date: 06/28/2024 8:09:36 AM Gender: F Tech: Location: [facility] Ref Provider: MICHAEL RAINEY Height(Cm): 163 BSA: 2.13 Weight(Kg): 99.8 Heart Rate: 73 BP: 134 / 80 Quality: Good Order Provider: MICHAEL RAINEY PROCEDURES: Echocardiographic Report: Transthoracic echocardiogram with complete 2D, M-Mode, and color Doppler examination. With Strain Analysis. INDICATIONS: I48.0 Paroxysmal atrial fibrillation. MEASUREMENTS: 2D/MM Value Range Doppler Value Range EF Mod BP 63 % [ 54 - 74 ] LETICIA Vmax 2.49 cm2 [ 2.00 - 4.00 ] EF Teich MM 73 % [ 54 - 74 ] AV Mean PG 4 mmHg Estimated EF 65-70 % AV Peak Tigre 1.33 m/s [ 1.00 - 1.70 ] LVIDd 2D 4.12 cm [ 3.80 - 5.20 ] AV Peak PG 7 mmHg LVIDd MM 4.64 cm [ 3.80 - 5.20 ] AV VTI 34.33 cm LVIDs 2D 2.57 cm [ 2.20 - 3.50 ] LVOT Diam 1.95 cm [ 1.70 - 2.10 ] LVIDs MM 2.69 cm [ 2.20 - 3.50 ] LVOT Peak Tigre 1.05 m/s [ 0.70 - 1.10 ] LVPWd 2D 1.19 cm [ 0.60 - 0.90 ] LVOT VTI 27.15 cm LVPWd MM 1.04 cm [ 0.60 - 0.90 ] MV E Peak Tigre 1.12 m/s [ 0.60 - 1.30 ] IVSd 2D 1.22 cm [ 0.60 - 0.90 ] MV A Peak Tigre 1.10 m/s [ 1.00 - 1.20 ] IVSd MM 1.10 cm [ 0.60 - 0.90 ] MV Mean PG 3 mmHg [ 0 - 5 ] LA Dimension MM 4.14 cm [ 2.70 - 3.80 ] MVA PHT 4.34 cm2 [ 2.00 - 4.00 ] AoR Diam MM 3.07 cm [ 2.70 - 3.70 ] MV Decel Time 217 msec [ 104 - 258 ] LA Volume Index 21 cc/m2 [ 16 - 34 ] PV Peak Tigre 1.01 m/s [ 0.40 - 0.80 ] TR Peak Tigre 2.85 m/s [ 1.00 - 2.80 ] TR Peak PG 33 mmHg RVSP 41.00 mmHg [ 10.00 - 36.00 ] Lateral E` 0.09 m/s [ 0.10 - 0.15 ] E/E` 12 2D/MM Value Range Doppler Value Range - FINDINGS: Interpretation Site: Exam was interpreted at [facility]. Left Ventricle: Normal left ventricular systolic function. No focal wall motion abnormalities. Normal left ventricular size. Mild concentric left ventricular hypertrophy. Impaired diastolic relaxation Grade I. Ejection fraction is measured at 63 %. Ejection Fraction is visually estimated to be 65-70 %. Global Longitudinal Strain is -17 %. GLS is borderline. Right Ventricle: Normal right ventricular systolic function. Mild enlargement of right ventricle. Left Atrium: There is mild enlargement of left atrium. Right Atrium: The right atrium is normal in size. Atrial Septum: Normal atrial septum. Mitral Valve: Severe mitral annular calcification. Mild mitral valve regurgitation. There is no hemodynamically significant mitral stenosis by Doppler. Aortic Valve: No evidence of hemodynamically significant aortic stenosis by Doppler. Aortic cusps appear mildly sclerotic. Trileaflet aortic valve. Trace aortic valve regurgitation. Tricuspid Valve: Normal appearance of the tricuspid valve. Mild pulmonary hypertension based on right ventricular systolic pressure. Estimated peak RVSP is 41 mmHg. Mild tricuspid regurgitation. Pulmonic Valve: Normal appearance of the pulmonic valve. No pulmonic stenosis. Mild pulmonic regurgitation. Pericardium: Normal pericardium with no significant pericardial effusion. Aorta: Normal aortic root. IVC: Normal size and normal respiratory collapse consistent with normal right atrial pressure (<5 mmHg). CONCLUSIONS: Normal left ventricular systolic function. No focal wall motion abnormalities. Normal left ventricular size. Mild concentric left ventricular hypertrophy. Impaired diastolic relaxation Grade I. Ejection fraction is measured at 63 %. Ejection Fraction is visually estimated to be 65-70 %. Global Longitudinal Strain is -17 %. GLS is borderline. Normal right ventricular systolic function. Mild enlargement of right ventricle. There is mild enlargement of left atrium. Severe mitral annular calcification. Mild mitral valve regurgitation. Mild pulmonary hypertension based on right ventricular systolic pressure. Estimated peak RVSP is 41 mmHg. Mild tricuspid regurgitation. Mild pulmonic regurgitation. Normal sinus rhythm. Electronically Signed By: Manuel Linares MD 06/28/2024 6:34:09 PM LEAD BURNER Procedure Note Manuel Linares MD - 06/28/2024 [facility] Cardiology [address], [address], [place] [address] P:[phone] P:[phone] Echocardiographic Report Patient Name: LUI ZABALA A : 1960 Study Date: 06/28/2024 8:09:36 AM Gender: F Tech: Location: [facility] Ref Provider: MICHAEL RAINEY Height(Cm): 163 BSA: 2.13 Weight(Kg): 99.8 Heart Rate: 73 BP: 134 / 80 Quality: Good Order Provider: MICHAEL RAINEY PROCEDURES: Echocardiographic Report: Transthoracic echocardiogram with complete 2D, M-Mode, and color Dopplerexamination. With Strain Analysis. INDICATIONS: I48.0 Paroxysmal atrial fibrillation. MEASUREMENTS: 2D/MM Value Range Doppler ValueRange EF Mod BP 63 % [ 54 - 74 ] LETICIA Vmax 2.49cm2 [ 2.00 - 4.00 ] EF Teich MM 73 % [ 54 - 74 ] AV Mean PG 4mmHg Estimated EF 65-70 % AV Peak Tigre 1.33m/s [ 1.00 - 1.70 ] LVIDd 2D 4.12 cm [ 3.80 - 5.20 ] AV Peak PG 7mmHg LVIDd MM 4.64 cm [ 3.80 - 5.20 ] AV VTI 34.33cm LVIDs 2D 2.57 cm [ 2.20 - 3.50 ] LVOT Diam 1.95 cm[ 1.70 - 2.10 ] LVIDs MM 2.69 cm [ 2.20 - 3.50 ] LVOT Peak Tigre 1.05m/s [ 0.70 - 1.10 ] LVPWd 2D 1.19 cm [ 0.60 - 0.90 ] LVOT VTI 27.15cm LVPWd MM 1.04 cm [ 0.60 - 0.90 ] MV E Peak Tigre 1.12m/s [ 0.60 - 1.30 ] IVSd 2D 1.22 cm [ 0.60 - 0.90 ] MV A Peak Tigre 1.10m/s [ 1.00 - 1.20 ] IVSd MM 1.10 cm [ 0.60 - 0.90 ] MV Mean PG 3 mmHg[ 0 - 5 ] LA Dimension MM 4.14 cm [ 2.70 - 3.80 ] MVA PHT 4.34cm2 [ 2.00 - 4.00 ] AoR Diam MM 3.07 cm [ 2.70 - 3.70 ] MV Decel Time 217msec [ 104 - 258 ] LA Volume Index 21 cc/m2 [ 16 - 34 ] PV Peak Tigre 1.01m/s [ 0.40 - 0.80 ] TR Peak Tigre 2.85 m/s [ 1.00 - 2.80 ] TR Peak PG 33 mmHg RVSP 41.00 mmHg [ 10.00 - 36.00 ] Lateral E` 0.09 m/s [ 0.10 - 0.15 ] E/E` 12 2D/MM Value Range Doppler ValueRange - FINDINGS: Interpretation Site: Exam was interpreted at [facility]. Left Ventricle: Normal left ventricular systolic function. No focal wall motionabnormalities. Normal left ventricular size. Mild concentric left ventricular hypertrophy.Impaired diastolic relaxation Grade I. Ejection fraction is measured at 63 %. EjectionFraction is visually estimated to be 65-70 %. Global Longitudinal Strain is -17 %. GLS isborderline. Right Ventricle: Normal right ventricular systolic function. Mild enlargement of rightventricle. Left Atrium: There is mild enlargement of left atrium. Right Atrium: The right atrium is normal in size. Atrial Septum: Normal atrial septum. Mitral Valve: Severe mitral annular calcification. Mild mitral valve regurgitation.There is no hemodynamically significant mitral stenosis by Doppler. Aortic Valve: No evidence of hemodynamically significant aortic stenosis by Doppler.Aortic cusps appear mildly sclerotic. Trileaflet aortic valve. Trace aortic valveregurgitation. Tricuspid Valve: Normal appearance of the tricuspid valve. Mild pulmonary hypertensionbased on right ventricular systolic pressure. Estimated peak RVSP is 41 mmHg. Mildtricuspid regurgitation. Pulmonic Valve: Normal appearance of the pulmonic valve. No pulmonic stenosis. Mildpulmonic regurgitation. Pericardium: Normal pericardium with no significant pericardial effusion. Aorta: Normal aortic root. IVC: Normal size and normal respiratory collapse consistent with normal rightatrial pressure (<5 mmHg). CONCLUSIONS: Normal left ventricular systolic function. No focal wall motionabnormalities. Normal left ventricular size. Mild concentric left ventricular hypertrophy.Impaired diastolic relaxation Grade I. Ejection fraction is measured at 63 %. EjectionFraction is visually estimated to be 65-70 %. Global Longitudinal Strain is -17 %. GLS isborderline. Normal right ventricular systolic function. Mild enlargement of rightventricle. There is mild enlargement of left atrium. Severe mitral annular calcification. Mild mitral valve regurgitation. Mild pulmonary hypertension based on right ventricular systolic pressure.Estimated peak RVSP is 41 mmHg. Mild tricuspid regurgitation. Mild pulmonic regurgitation. Normal sinus rhythm. Electronically Signed By: Manuel Linares MD 06/28/2024 6:34:09 PM LEAD BURNER us Michael Rainey MD CV ECHO PROCEDURES Final Result * Extended/Nursing Home Holter Patch (>48 hours up to 7 days) (05/24/2024 12:05 PM LEAD BURNER) Anatomical Region Laterality Modality Electrocardiogra phy Narrative 06/14/2024 9:46 AM LEAD BURNER AMBULATORY COMMUNICATIONS MANAGER REPORT Patient Name: Lui Zabala Date of : 1960 Requesting Physician: Brigid Date of interpretation: 06/14/24 Type of monitor : 7 day event monitor Date of the study/Enrollment period: 06/14/2024 Indication: Palpitations Quality of the study: Favorable Interpretation: Basic rhythm is sinus with normal [place] QRS and QT intervals. The heart rate variability is unremarkable and there are no pauses identified there are no examples of abnormal AV conduction. Supraventricular ectopic activity consists of occasional to sometimes frequent PACs there were also several brief episodes of paroxysmal atrial fib identified the longest of which was for 15 seconds and were labeled by the clinical research monitor as SVT but are examples of atrial fibrillation based on my review. Ventricular ectopic activity is infrequent consisting of low frequency PVCs with a PVC burden of less than 1%. Conclusions: Sinus rhythm with normal heart rate variability Paroxysmal atrial fibrillation with AF burden of less than 1% Rare PVCs Voice recognition software was used to complete this document, therefore, embedded case manager variances may occur. Michael Rainey MD [facility] 06/14/24 us Michael Rainey MD CV CARDIAC SERVICES PROC EDURES Final Result * POCT lipid panel (05/23/2024 7:56 AM LEAD BURNER) Cholesterol, POC 268 mg/dL HDL, POC 45 mg/dL Triglycerides, POC 182 mg/dL LDL Cholesterol POC 186 mg/dL Chol/HDL Ratio, POC 6.0 Non-HDL Cholesterol, POC 223 mg/dL Cholesterol Total, POC 268 mg/dL Capillary blood 05/23/2024 7 :56 AM LEAD BURNER Michael Rainey MD POINT OF CARE TEST ORDER XOCHITL Final Result from Last 3 Months Insurance [facility] [employer] [id number] [employer] HMO PPO Care Teams Sausage Wrapper Relationship Specialty Start Date End Date Andrew Faustin DO [address] [id number] PCP - General Internal Medicine 05/23/24
--- OUTSIDE RECORDS SUMMARY | 2024-07-04 08:05 | XMS_ITS | Continuity of Care Document ---
Author Name [facility] Address [address] [place] [address] Organization [facility] Care Team Providers Care Hog Pusher Name Role Phone [facility] Unavailable Unavailable Problems Problem Status Onset Date Problem Type Date of Resolution Comments Source Pain in right foot (finding) 01/16/2024 Diagnosis Autoimmune disease (disorder) Active Condition Closed fracture of fifth metatarsal bone (disorder) Active Condition Foot pain (finding) Active Condition Supraventricular tachycardia (disorder) Active Condition Closed fracture of metatarsal bone (disorder) Diagnosis Localized, 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) Diagnosis Calcaneal spur of left foot (disorder) Diagnosis Enthesopathy of foot region (disorder) Diagnosis Medications Medication Details Route Status Patient Instructions Ordering Provider Order Date Source Hydroxychloroquine Sulfate 200 MG Oral Tablet 200 mg = 1 Tablet(s) , Oral, Daily, Refill(s) 0 Active 024 [facility] metoprolol succinate ER 50 mg oral tablet, extended release 50 mg = 1 Tablet(s) , Oral, Daily, Refill(s) 0 Active 024 [facility] Results Order Name Results Value Reference Range Date Interpretation Comments Source XR Foot Complete 3+ Views Right XR Foot Complete 3+ Views Right XR General Diagnostic Accession # Exam Date/Time Procedure Ordering Provider [id number] 01/16/2024 09:32 CDT XR Foot Complete 3+ Yoselin [employer], Amy Duncann Views Right Reason For Exam (XR Foot Complete 3+ Views Right) Right foot pain times 3-4 weeks Report EXAMINATION: XR Foot Complete 3+ Views Right INDICATION: Right foot pain times 3-4 weeks VIEWS: 3 COMPARISON: 04/26/2022 radiographs of the foot FINDINGS: There are small osteophytes and joint space narrowing at the first metatarsal phalangeal joint. No acute fracture. No suspicious osseous lesions. Joints of the midfoot appear to be intact. There are calcaneal enthesophytes. IMPRESSION: Mild first metatarsophalangea l joint osteoarthritis. * * *Final Report* * * Electronically Signed by: Anabel PANIAGUA, Sanjeev Rodriguez Signed on: 01/16/24 10:17 01/15 09[facility]22 [facility] Vital Sign Value Date Comments Source Heart Rate 67 bpm 01/16/2024 14:02:00 [facility] Height (cm) 162 cm 01/16/2024 14:02:00 [facility]) 99 kg 01/16/2024 14:02:00 ROMI P [facility] BMI 37.7 kg/m2 01/16/2024 14:02:00 [facility] BSA Arun 2.02 01/16/2024 14:02:00 [facility] SpO2 98 % 01/16/2024 14:02:00 [facility] Encounters Location Location Details Encounter Type Encounter Number Reason For Visit Attending Provider ADM Date DC Date Status Source Podiatry Between Visit [id number] 01/11 20:37 :08 01/12 04:59 :59 [facility] [id number] Amy Yoselin 01/15 13:47 :19 01/16 04:59 :59 [facility] Social History Social History Date Source No data available for this section 01/17/2024 [facility] No data available for this section 01/13/2024 [facility]
--- OUTSIDE RECORDS SUMMARY | 2024-07-04 08:05 | XMS_ITS | Clinical Summary ---
Author Organization [facility] [address] Address [address] [place] [address] Care Team Providers Care Securities Vault Supervisor Name Role Phone Andrew Faustin DO Primary Care Provider [phone] Allergies Active Allergy Reactions Criticality Noted Date Comments Morphine Nausea & Vomiting Low Oseltamivir Hallucinations Medium 08/01/2017 Medications ibuprofen (ADVIL) 200 mg tablet take 1 tablet by oral route every 6 hours as needed with food 0 0 05/15/[address] (NexIUM) 20 mg capsule take 1 capsule by oral route every day 0 08/13/2004 Active cholecalciferol (VITAMIN D-3) 31458 unit capsuleIndicati ons:Vitamin D Deficiency Take 1 [...] atrial fibrillation 06/14/2024 Paroxysmal SVT (supraventricular tachycardia) Encounters Date Type Department Care Team Description 06/28/2024 8:15 AM PIN SETTER Ancillary Procedure [facility] Cardiology at [address] [place] [address] Paroxysmal atrial fibrillation (HCC) 06/14/2024 9:45 AM PIN SETTER Office Visit [facility] Cardiology at [address] [address] Michael Rainey MD Paroxysmal SVT (supraventricular tachycardia) (Primary Dx); Paroxysmal atrial fibrillation (HCC) 05/23/2024 10:00 AM PIN SETTER Ancillary Procedure [facility] Cardiology at [address] [address] Re-entry ventricular arrhythmia (HCC) 05/23/2024 8:00 AM PIN SETTER Office Visit [facility] Cardiology at [address] [address] Michael Rainey MD Paroxysmal SVT (supraventricular tachycardia) (Primary Dx); Lipid screening from Last 3 Months Surgical History Surgery Date Site/Laterality Comments TONSILLECTOMY Tonsillectomy Medical History Medical History Date Comments Gastroesophageal reflux disease GERD Hx Other Medical SVT; Comments: [facility] 05/22/2015 - Hx Other Medical mitral valve pr olapse; Comments: [facility] 05/22/2015 - Hx Other Medical hysterectomy wi th BSO; Comments: [facility] 05/22/2015 - Hx Other Medical tubal ligation; Comments: [facility] 05/22/2015 - Hx Other Medical right shoulder surgery; Comments: [facility] 05/22/2015 - Family History Medical History Relation Name Comments Hypertension Maternal Grandmother 2 Hyper tension; Cancer Other Family history of Cancer, unknown; Relation Name Status Comments Maternal Grandmother 1 Alive Maternal Grandmother 2 Other Social History Tobacco Use Types Packs/Day Years Used Date Smoking Tobacco: Former Cigarettes Q uit: 08/01/1977 Smokeless Tobacco: Never Alcohol Use Standard Drinks/Week Comments Yes 1 (1 standard drink = 0.6 oz pur e alcohol) Comments Unknown Sex and Gender Information Value Date Recorded Sex Assigned at Not on file Legal Sex Female 7:00 PM PIN SETTER Gender Identity Not on file Sexual Orientation Not on file Obstetrics History Last Filed Vital Signs Vital Sign Reading Time Taken Comments Blood Pressure 134/80 06/14/2024 9:39 AM PIN SETTER Pulse 82 06/14/2024 9:39 AM PIN SETTER Temperature - - Respiratory Rate - - Oxygen Saturation 96% 06/14/2024 9:39 AM PIN SETTER Inhaled Oxygen Concentration - - Weight 99.8 kg (220 lb) 06/14/2024 9:39 AM PIN SETTER Height 162.6 cm (5' 4 ) 06/14/2024 9:39 AM PIN SETTER Body Mass Index 37.76 06/14/2024 9:39 AM PIN SETTER Plan of Treatment Health Maintenance Due Date Last Done Comments Breast Cancer Screening-Mammogram 1960 Colon Cancer Screening-Colonoscopy 1960 Depression Screening 1958 Fall Risk Assessment 1958 Hepatitis C Screening 1958 Osteoporosis Screening-Bone Density Scan 1958 DTaP/Tdap/Td Vaccine (1 - Tdap) 1969 Hepatitis B Screening 1976 Pneumococcal vaccine 65+ (1 of 2 - PCV) 1977 Zoster Vaccine (1 of 2) 1977 Well Visit 65+ 2023 Influenza Vaccine (#1) 2023 Procedures Procedure Name Priority Date/Time Associated Diagnosis Comments TRANSTHORACIC ECHO (TTE) COMPLETE W DOPPLER/CF WO CONTRAST Routine 06/28/2024 8:44 AM PIN SETTER Paroxysmal atrial fibrillation (HCC) EXTENDED/SENIOR LIVING HOLTER PATCH (>48 HOURS UP TO 7 DAYS) Routine 05/24/2024 12:05 PM PIN SETTER Re-entry ventricular arrhythmia (HCC) POCT LIPID PANEL Routine 05/23/2024 7:56 AM PIN SETTER Lipid screening from Last 3 Months Results * TRANSTHORACIC ECHO (TTE) COMPLETE W DOPPLER/CF WO CONTRAST (06/28/2024 8:44 AM PIN SETTER) LV EF 65-70 % CONS SCIMAGE Anatomical Region Laterality Modality Ultrasound 06/28/2024 8:09 AM PIN SETTER Narrative 06/28/2024 6:34 PM PIN SETTER [facility] Card[facility] [address], [address], [place] [address] P:[phone] P:[phone] Echocardiographic Report Patient Name: LUI ZABALA A [...] FINDINGS: Interpretation Site: Exam was interpreted at [facility]. Left Ventricle: Normal left ventricular systolic [...] By: Manuel Linares MD 06/28/2024 6:34:09 PM PIN SETTER Procedure Note Manuel Linares MD - 06/28/2024 [facility] [address] [facility], [address], [place] [address] P:[phone] P:[phone] Echocardiographic Report Patient Name: LUI ZABALA A : 1960 Study Date: 06/28/2024 8:09:36 AM Gender: F Tech: Location: [facility] Ref Provider: MICHAEL RAINEY Height(Cm): 163 [...] FINDINGS: Interpretation Site: Exam was interpreted at [facility]. Left Ventricle: Normal left ventricular systolic [...] By: Manuel Linares MD 06/28/2024 6:34:09 PM PIN SETTER us Michael Rainey MD CV ECHO PROCEDURES Final Result * Extended/Detention Holter Patch (>48 hours up to 7 days) (05/24/2024 12:05 PM PIN SETTER) Anatomical Region Laterality Modality Electrocardiogra phy Narrative 06/14/2024 9:46 AM PIN SETTER AMBULATORY SCHOLASTIC APTITUDE TEST GRADER REPORT Patient Name: Lui Zabala Date of : 1960 Requesting Physician: Brigid Date of interpretation: 06/14/24 Type of monitor : 7 day event monitor Date of the study/Enrollment period: 06/14/2024 Indication: Palpitations Quality of the study: Favorable Interpretation: Basic rhythm is sinus with normal MT QRS and QT intervals. The heart rate variability is unremarkable and there are no pauses identified there are no examples of abnormal AV conduction. Supraventricular ectopic activity consists of occasional to sometimes frequent PACs there were also several brief episodes of paroxysmal atrial fib identified the longest of which was for 15 seconds and were labeled by the media monitor as SVT but are examples of atrial fibrillation based on my review. Ventricular ectopic activity is infrequent consisting of low frequency PVCs with a PVC burden of less than 1%. Conclusions: Sinus rhythm with normal heart rate variability Paroxysmal atrial fibrillation with AF burden of less than 1% Rare PVCs Voice recognition software was used to complete this document, therefore, vehicle fuel systems converter variances may occur. Michael Rainey MD [facility] 06/14/24 Michael Rainey MD CV CARDIAC SERVICES PROC EDURES Final Result * POCT lipid panel (05/23/2024 7:56 AM PIN SETTER) Cholesterol, POC 268 mg/dL HDL, POC 45 mg/dL Triglycerides, POC 182 mg/dL LDL Cholesterol POC 186 mg/dL Chol/HDL Ratio, POC 6.0 Non-HDL Cholesterol, POC 223 mg/dL Cholesterol Total, POC 268 mg/dL Capillary blood 05/23/2024 7 :56 AM PIN SETTER us Michael Rainey MD POINT OF CARE TEST ORDER XOCHITL Final Result from Last 3 Months Insurance [employer] MEDICARE HMO PPO [facility] [place] [id number] [place] [id number] Care Teams Securities Vault Supervisor Relationship Specialty Start Date End Date Andrew Faustin DO [address] [facility] [address] [place], [place] [id number] PCP - General Internal Medicine 05/23/24
--- OUTSIDE RECORDS SUMMARY | 2024-07-04 08:05 | XMS_ITS | Clinical Summary ---
Author Organization [facility] Address [address], [address] [address] Phone Care Team Providers Care Journeyman Pipe Fitter Name Role Phone Jhon Pickard DO Primary Care Provider [phone] Medications LINZESS 145 MCG Capsule TAKE 1 CAPSULE BY MOUTH DAILY 30 Cap 6 03/23/2015 Active Social History Tobacco Use Types Packs/Day Years Used Date Smoking Tobacco: Never Assessed Comments Unknown Sex and Gender Information Value Date Recorded Sex Assigned at Not on file Legal Sex Female 12:05 AM CDT Gender Identity Not on file Sexual Orientation Not on file Plan of Treatment Health Maintenance Due Date Last Done Comments DEXA Bone Density 1960 Hepatitis C Virus (HCV) Screening 1960 TdaP Immunization 1958 Pap Smear 1979 Cervical Cancer Screening (CCS) 1988 HPV/Cotest 1988 Cologuard 2008 Immunochemical Fecal Occult Blood 2008 Mammogram 2008 Pneumococcal Immunization (5 0+ years) (1 of 1 - PCV) 2008 Zoster Immunization (1 of 2) 2008 Influenza Immunization (#1) 2023 SARS-COV-2 Immunization (1 - 2023- season) 2023 Colonoscopy 11/26/2028 11/26/2018 Colorectal Cancer Screening 11/26/2028 Respiratory Syncytial Virus (RSV) Immunization (Adult) (1 - 1-dose 75+ series) 2033 11/26/2018 Hepatitis B Immunization Aged Out No longer eligible based on patient's age to complete this topic Meningococcal Immunization (ACWY) Aged Out No longer eligible based on patient's age to complete this topic Rotavirus Immunization Aged Out No lo nger eligible based on patient's age to complete this topic Procedures Procedure Name Priority Date/Time Associated Diagnosis Comments COLONOSCOPY Routine 11/26/2018 from Last 3 Months or Most Recently Relevant to Health Maintenance Results * HM COLONOSCOPY (11/26/2018) Arsen Wallace DO PROCEDURE/MINOR SURGICAL ORDERA BLES Final Result from Last 3 Months or Most Recently Relevant to Health Maintenance Insurance [facility] 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
[2024-07-29 11:55] VITALS: BMI 36.0
--- NOTE | 2024-07-29 11:55 | P.SLEEP_ITS ---
Sleep Study Date of Study: 07/04/24 Ordering Provider: Saúl Quiroz APRN Interpreting Physician: Gauri Booker DO Sleep Study Type: CPAP Titration Height: 1.63 m Weight: 95.254 kg Body Mass Index: 36.0 Neck Circumference (inches): 15 Percy: 7 Reason for Sleep Study WatchPAT home sleep test on 08/23/2023 that showed an overall AHI of 22.4 and HUNG of 5.6. Sleep History Dulce Zabala is a 64-year-old woman who has difficulty falling asleep and staying asleep. Medical co-morbidities include lupus, SVT, GERD, hypertension, hyperlipidemia and low vitamin-D levels. She has excessive daytime sleepiness. She does not awaken from sleep feeling short of breath. She occasionally awakens at night with heartburn, belching or coughing. She frequently snores but only rarely is it loud enough that others complain about it. She occasionally has difficulty sleeping when she has a cold. She does not wake up gasping for breath at night or have breathing problems at night reported to her by others. She occasionally sweats excessively at night and notices her heart pounding or beating irregularly at night. She rarely falls asleep during the day, rarely falls asleep involuntarily but never falls asleep while driving. She does not have loss of muscle tone with strong emotion. 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 She does not feel paralyzed on waking or falling asleep. She rarely has vivid dreamlike scenes upon awakening or falling asleep. She rarely feels afraid to go to sleep. She rarely has nightmares. She rarely recalls her dreams. She occasionally has racing thoughts. She never feels sad or depressed. She occasionally has anxiety. She occasionally notices parts her body jerking. She rarely kicks at night. She occasionally has crawling and aching feelings in her legs. She occasionally has leg pain during the night. There is no problem with morning jaw pain but occasionally she grinds her teeth during sleep. She occasionally is bothered by pain during the day. She rarely is awakened by pain at night. She occasionally wakes up feeling stiff in the morning, wakes up with sore achy muscles and pain in the neck and spine. She has fatigue, insomnia and takes antacids regularly. Normal bedtime is between 10:30 p.m. and 11:00 p.m., falling asleep after 1/2 hour, typically waking up between 3 and 4 times at night for no apparent reason. She will pray, try to go back to sleep, and this may take anywhere between 5 and 10 minutes. These awakenings occur in the middle of the night and in the early learning teacher hours. Her normal wake time is 6:30 a.m.. On weekends, bedtime is the same, 10:30-11 p.m. and wake time is between 6:30 a.m. to 7:00 a.m.. She estimates getting between 6 and 7 hours of sleep at night. She only occasionally wakes up feeling refreshed. She frequently has excessive daytime sleepiness. She does not take naps in the afternoon or evening. A short nap 15 minutes long may be refreshing. She is usually drowsy for an hour after waking. She feels better in the mornings or evenings, feeling less optimal in the afternoons. Habits: Former smoker. No alcohol. [facility] Past Medical History Medical History A-fib Elevated alkaline phosphatase level Other fatigue Lower leg edema Ear pain, left Cough Colon cancer screening Sciatica of right side Undifferentiated connective tissue disease Bilateral hand pain Hypertension Fatty liver Rectal polyp Shingles (~01/2020) Hyperlipidemia Vitamin D deficiency ALTHEA positive Inflammatory arthritis Chronic GERD Surgical History Surgical History History of shoulder surgery Right side History of tonsillectomy History of total abdominal hysterectomy and bilateral salpingo-oophorectomy History of tubal ligation Family History Family History Sibling Patient's sister is in good health Patient's brother is in good health Mother No problems noted. Father Rheumatic arteritis Social History Social History Social History: Resides in [place] with her . Remote smoking history, quit in 1987. No alcohol or illicit substance abuse. She designates her as her surrogate decision maker and wishes to be a full code. Smoking packs per day: 0.5 Smoking cigarettes per day: 10.0 Years smoked: 3 Smoking pack-years: 1.50 Smoking status: Former smoker Second hand tobacco smoke exposure: No Smoking end date: 05/01/87 Alcohol intake: never Substance use: never Substance use type: does not use Do You Feel Safe in your Home?: Yes Lack of Transportation: No Lack of Food: Never True Current Housing: I Have Housing Concerned About Future Housing: No Difficulty Paying Gas/Electric Bills: No Difficulty Paying for Meds: No Currently Unemployed: No Education: Bachelor's Degree Difficulty w/ Childcare or Family Care: No Living arrangements: with family Occupation/Education: occupation 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 Gender identity (if verbalized by the patient): Female Spiritual care concerns: No Medications Home Medications ?Medication ?Instructions ?Recorded ?Confirmed ?Type cholecalciferol (vitamin D3) 250 10,000 unit PO DAILY 03/19/19 06/14/24 History mcg (10,000 unit) capsule hydroxychloroquine 200 mg tablet See Rx Instructions .Route 04/13/23 06/14/24 Rx .COMPLEX #180 tabs metoprolol tartrate 25 mg tablet 25 mg PO BID 04/13/23 06/14/24 History multivitamin (Daily Multi-Vitamin 1 tablet PO DAILY 07/26/23 06/14/24 History tablet) Sleep Procedure A full night CPAP Titration using the [employer] multi-channel system recorded the standard physiologic parameters including EEG, EOG, submentalis EMG, anterior tibialis EMG, EKG, body position, nasal and oral airflow using nasal pressure sensor and thermistor.? Respiratory parameters of chest and abdominal movements were recorded with Respiratory Inductance Plethysmography belts. Oxygen saturation was recorded by pulse oximetry. Video monitoring was also performed. Sleep stages, periodic limb movements, and EEG arousals were scored in 30 second epochs according to the criteria of the AASM Scoring Manual. The Apnea-Hypopnea Index was calculated using CMS guidelines for definition of hypopnea with 4% O2 desaturations while scoring respiratory events. Sleep Architecture The total recording time was 474.9 minutes.? The total sleep time was 276.0 minutes. Sleep latency was 35.1 minutes. REM latency was 53.5 minutes. Sleep efficiency was 58.1%. The patient had 39 awakenings for an awakening index of 8. 5. Wake after Sleep Onset time was 163.5 minutes. The patient spent 36.0 minutes, 13.0% of total sleep time in Stage N1. The patient spent 150.5 minutes, 54.5% in Stage N2. The patient spent 32.5 minutes, 11.8% in Stage N3. The patient spent 57.0 minutes, 20.7% in Stage REM. Respiratory Analysis The patient had 23 hypopneas and 2 central apneas for an overall Apnea Hypopnea Index of 5.4 events per hour. The REM Apnea Hypopnea Index was 12.6. The NREM Apnea Hypopnea Index was 3.6. The patient had a Central Apnea Hypopnea Index of 0.4. There was no evidence of Manny-Connelly Respirations. The patient was started on CPAP 5 cm H2O and titrated to CPAP 9 cm H2O due to hypopneas. The patient was able to fall asleep starting on CPAP 5 cm H2O. The patient was able to achieve REM sleep starting on CPAP 5 cm H2O. On CPAP 7 cm H2O, the patient spent 135.5 minutes in NREM and 17.5 minutes in REM with 2 central apneas and 13 hypopneas, resulting in an AHI of 5.9. The patient had a sleep efficiency of 51.2% on this pressure setting. When the patient was titrated to 9 cm H2O, she developed more hypopneas, resulting in an AHI of 19.6. Arousals There were 76 total arousals for an arousal index of 16.5. There were 60 spontaneous arousals for an index of 13.0. ?There were 3 arousals due to respir atory events for an index of 0.7. There were 8 arousals due to periodic limb movements for an index of 1.7.? There were 5 arousals due to isolated limb movements for an index of 1.1. Periodic Limb Movements The patient had 10 isolated limb movements with an index of 2.2. The patient had 27 periodic limb movements with index of 5.9. Patient had a total of 37 limb movements with a total limb movement index of 8.0. Oximetry Data The patient had an average oxygen saturation of 94.4% in sleep with a minimum oxygen saturation of 87.0% and a maximum oxygen saturation of 98.0%. The patient had 29 oxygen desaturations that were 4% or greater resulting in an Oxygen Desaturation Index of 6.3.? The patient spent 0.3 minutes, 0.1% of total sleep time with an oxygen saturation below 88%. Snoring Profile Mild snoring was present intermittently in the beginning of the study. The snoring resolved once the patient was titrated to 9 cm H2O. Cardiac Profile The EKG showed normal sinus rhythm. No arrhythmias or PVCs were seen. The patient had an average pulse rate of 62.4 bpm with a minimum pulse rate of 54.0 bpm and a maximum pulse rate of 83.0 bpm. ? EEG Profile No signs of seizure activity seen. Assessment and Plan Assessment and Plan (1) MARGIE (obstructive sleep apnea): Code(s): G47.33 - Obstructive sleep apnea (adult) (pediatric) Status: Acute Assessment and Plan: The patient was started on CPAP 5 cm H2O and titrated to CPAP 9 cm H2O due to hypopneas. I recommend that the patient be prescribed Resmed CPAP 7cm H2O, size small Resmed P30i mask, CPAP filters/tubing and heated humidity. This should be used with all episodes of sleep.? Compliance should be reviewed within 31-90 days of starting therapy for usage greater than 4 hours per night greater than 70% of the nights. The patient should be asked about symptoms such as?excessive daytime sleepiness, quality of sleep, decreased nocturia, increased?mental functioning such as memory, mood, and concentration. Data The data obtained during this sleep study is adequate for interpretation. Certification This sleep study has been reviewed by a board certified sleep medicine physician.
== END 2024-07-05 06:58 | disposition home or self-care (01) ==
PROVIDERS: PCP Nurse Practitioner; Visit Provider Nurse Practitioner
DX: G47.33 Obstructive sleep apnea (adult) (pediatric) (principal)
CPT/HCPCS: 95811